=== PATIENT | female | born 1935 | race Caucasian/White ===

== ENCOUNTER 2017-09-14 06:53 | Outpatient (CLI) | payer MEDICARE, OTHER ==
[2017-09-14 07:16] LABS: CREATININE 0.9 mg/dL (0.4-1.0)
[2017-09-14] MEDS ORDERED: GADOBUTROL 15 MMOL/15 ML VIAL IVP ONE (10:21)
--- NOTE | 2017-09-14 17:50 | MRI Report ---
MRI BILATERAL BREASTS WITH AND WITHOUT CONTRAST: 09/14/2017 CLINICAL INDICATION: Multiple skin lesions positive for lobular carcinoma. TECHNIQUE: Using a dedicated breast coil, axial precontrast STIR, T1, dynamic postcontrast axial 3-D images, axial 3-D high resolution images, and postcontrast diffusion weighted images were obtained, 8 mL of Gadavist was administered intravenously. Post- processing with dynamic contrast enhancement analysis and multiplanar reformations were performed with [employer]. FINDINGS: The breasts demonstrate moderate scattered foci of background parenchymal enhancement. RIGHT BREAST: Immediately adjacent to the surgical clips in the right upper central breast, there is a focus of abnormal enhancement, which demonstrates rapid enhancement with plateau kinetics. The margins of this enhancing region appear spiculated on high resolution images. It measures 2.1 x 1.0 x 1.7 cm. The right axillary lymph nodes appear morphologically normal. LEFT BREAST: There is a large region of architectural distortion in the inferior left breast, which involves both the skin and extends back to the chest wall. Only a small amount of abnormal enhancement is appreciated in this region, but the architectural distortion, skin tethering, and extension to the chest wall is very suspicious for malignancy. The region of architectural distortion spans approximately 5 x 4 x 3 cm. Morphologically abnormal left axillary lymph nodes are noted. IMPRESSION: BILATERAL ABNORMALITIES. ENHANCEMENT AROUND THE PREVIOUS RIGHT SURGICAL SITE, SUSPICIOUS FOR MALIGNANCY, AND A LARGE REGION OF ARCHITECTURAL DISTORTION AND SKIN DIMPLING IN THE LEFT LOWER BREAST, WITH ABNORMAL LEFT AXILLARY LYMPH NODES. RECOMMENDATION: If bilateral mastectomy is not planned, biopsy of the right breast abnormality may be helpful in treatment planning. BIRADS category 6: Known malignancy. The patient has been instructed to obtain results from Dr. Watt in 5 business days. COMMENT: Breast MRI is a highly sensitive examination, and has a cancer detection threshold down to approximately 5 mm; however, it only has moderate specificity. Although breast MRI has a high negative predictive value, appropriate clinical and mammographic followup are always necessary. MRI may miss less angiogenic tumors; therefore, it should not be used to avoid a biopsy which is otherwise clinically indicated. Normal appearing lymph nodes may contain microscopic tumor. Due to prone positioning, the described location of findings may differ from other modalities. TD: 09/14/2017 17:49 JUANITA
== END 2017-09-14 06:54 | disposition home or self-care (01) ==
LOC: LAB 06:53
PROVIDERS: ATTEND Surgery
DX: R92.8 Other abnormal and inconclusive findings on diagnostic imaging of breast (principal)
CPT/HCPCS: 36415; 82565; C8908; 77059

== ENCOUNTER 2017-10-17 10:30 | Outpatient (CLI) | payer MEDICARE, OTHER ==
[2017-10-17] MEDS ORDERED: BUFFERED LIDOCAINE 10 ML SYRINGE IU ONE (12:48)
--- NOTE | 2017-10-17 13:35 | Ultrasound Report ---
ULTRASOUND-GUIDED FINE NEEDLE ASPIRATION RIGHT THYROID NODULE: 10/17/2017 CLINICAL INDICATION: Abnormal PET scan. COMPARISON: Report of PET scan of 09/26/2016, report of previous thyroid ultrasound from [facility] from 2014. TECHNIQUE/FINDINGS: Initial imaging of the right lobe of the thyroid demonstrates that the dominant nodule has increased in size, now measuring 3.2 x 2.7 x 2.3 cm. The patient's right neck was prepped and draped in the usual sterile fashion. The skin and soft tissues were anesthetized with lidocaine. Under ultrasound guidance, four 22-gauge fine needle aspirations were performed. Needle washings were submitted to Pathology. The patient tolerated the procedure well. No immediate complications. IMPRESSION: ULTRASOUND-GUIDED FINE NEEDLE ASPIRATION OF THE DOMINANT NODULE IN THE RIGHT LOBE OF THE THYROID. PATHOLOGY REPORT PENDING. TD: 10/17/2017 13:17
[2017-10-17 14:18] VITALS: BP 159/77
== END 2017-10-17 10:31 | disposition home or self-care (01) ==
LOC: DI 10:30
PROVIDERS: ATTEND Surgery
DX: E04.1 Nontoxic single thyroid nodule (principal)
CPT/HCPCS: 10022; 76942; 88173; 88305; 88373

== ENCOUNTER 2018-06-21 07:57 | Outpatient (CLI) | payer MEDICARE, OTHER ==
--- NOTE | 2018-06-21 11:16 | Ultrasound Report ---
Reason: ESSENTIAL HYPERTENSION Procedure Date: 06/21/2018 Accession Number: [id number] / [id number] Procedure: US - Duplex Aorta Complete CPT Code: FULL RESULT: EXAM: AORTIC DOPPLER ULTRASOUND EXAM DATE: 06/21/2018 08:27 AM. CLINICAL HISTORY: Essential hypertension. COMPARISON: None. TECHNIQUE: Real-time sonographic imaging of retroperitoneal vascular structures, including color-flow, Doppler flow and spectral analysis was performed by the vineyardist. Multiple patient portal representative static images were saved for review. FINDINGS: Aorta: The abdominal aorta was adequately visualized. No evidence for abdominal aortic aneurysm. Aorta proximal: Sagittal AP: 1.3 cm. Aorta mid: Transverse: 1.3 x 1.4 cm. Aorta distal: Transverse: 1.3 x 1.3 cm. Caliber within normal limits: Yes. Plaque visualized: No significant plaque Right iliac: Transverse: 1.1 x 1.1 cm. Left iliac: Transverse: 0.9 x 1.1 cm. Doppler: Mid Aorta PSV: Not obtained. Iliac Vessels: The visualized proximal common iliac arteries are normal in caliber. Other: None. IMPRESSION: Normal. No abdominal aortic aneurysm. RADIA
--- NOTE | 2018-06-21 11:16 | Ultrasound Report ---
Reason: ESSENTIAL HYPERTENSION Procedure Date: 06/21/2018 Accession Number: [id number] / [id number] Procedure: US - Carotid Doppler Complete CPT Code: FULL RESULT: EXAM: BILATERAL CAROTID AND VERTEBRAL ARTERY DUPLEX DOPPLER ULTRASOUND: EXAM DATE: 06/21/2018 08:41 AM CLINICAL HISTORY: Essential hypertension. COMPARISON: None. TECHNIQUE: Grayscale imaging, color Doppler, and duplex spectral Doppler were used to evaluate the carotid and vertebral arteries bilaterally. Static images were obtained. FINDINGS: There is mild bilateral intimal thickening and visually approximately 20% narrowing of the proximal right internal carotid artery with no significant plaque identified in the right or left common or left internal carotid arteries. Normal antegrade flow is present in bilateral vertebral arteries. VELOCITIES (cm/sec): Right CCA Mid: PSV 97 cm/sec *CCA Dist: PSV 102 cm/sec ICA Prox: PSV 81 cm/sec, EDV 14 cm/sec ICA Mid: PSV 70 cm/sec, EDV 17 cm/sec *ICA Dist: PSV 82 cm/sec, EDV 20 cm/sec ECA: PSV 94 cm/sec Vert: PSV 48 cm/sec ICA/CCA: 0.84 Left *CCA Mid: PSV 92 cm/sec CCA Dist: PSV 78 cm/sec ICA Prox: PSV 74 cm/sec, EDV 13 cm/sec *ICA Mid: PSV 89 cm/sec, EDV 18 cm/sec ICA Dist: PSV 78 cm/sec, EDV 21 cm/sec ECA: PSV 102 cm/sec Vert: PSV 77 cm/sec ICA/CCA: 0.96 ICA diameter stenosis: Right: <50% by velocity and <70% by NASCET criteria. Left: <50% by velocity and <70% by NASCET criteria. IMPRESSION: 1. Subjectively mild right internal carotid artery atherosclerosis and no significant bilateral common carotid artery or left internal carotid artery plaquing. 2. In the right carotid artery there are no elevated carotid artery velocities to suggest hemodynamically significant stenosis. 3. In the left carotid artery there are no elevated carotid artery velocities to suggest hemodynamically significant stenosis. 4. Normal antegrade flow is present in bilateral vertebral arteries. General Recommendations: Stenosis =50% ICA - Follow-up ultrasound 6-12 months Stenosis <50% ICA - High Risk Patient with plaque - Follow-up ultrasound 1-2 years Normal Study but High Risk Patient - Follow-up ultrasound 3-5 years Management recommendations and diagnostic criteria are based on current IAC endorsed standards in Carotid Artery Stenosis: Grayscale and Doppler Ultrasound Diagnosis. Validated velocity measurements with angiographic measurements and velocity criteria are extrapolated from diameter data as defined by the Society of Radiologists in Ultrasound Consensus Conference Radiology 2003; 229;340-346. RADIA
== END 2018-06-21 07:58 | disposition home or self-care (01) ==
LOC: DI 07:57
PROVIDERS: ATTEND Internal Medicine Cardiovascular Disease
DX: I65.21 Occlusion and stenosis of right carotid artery (principal); I10 Essential (primary) hypertension
CPT/HCPCS: 93880; 93978

== ENCOUNTER 2019-07-29 15:18 | Outpatient (CLI) | payer MEDICARE, OTHER ==
--- NOTE | 2019-07-29 17:09 | CONSULTATION NOTE ---
Palliative Care Consultation - Referral Referring Provider: Dr. Daysi Torres Time of Visit: 7638-8333 Referral setting: [facility] [place] Referral Reason: Anxiety/Locally Advanced Breast CA/Goals of Care - Information Sources Records reviewed: Previous records reviewed History/Review of Systems obtained from: Patient, Other ( with patient; has ALZ) Exam limitations: No limitations - History of Present Illness Brief History of Present Illness: This is an anxious 83-year-old woman, who has locally advanced left breast inf iltrating lobular carcinoma with bilateral axilla and lower chest wall involvement. She is currently on letrozole and Ibrance since 10/2017. She has tolerated fairly well, though is complaining of of significant increase in fatigue, and limiting activity tolerance. Her understanding is they are going to decrease her dose with her next cycle. Patient was originally diagnosed as a result of seeing dermatology, noted some lesions on her chest and on her left breast. She had a punch biopsy performed and showed lobular carcinoma. Patient requesting to see palliative care for advanced care planning, she is very concerned regarding her who is present with her, he has known Alzheimer's, but is still quite functional. He presents with severe short-term memory issues, but has been able to still participate in day-to-day activities, and drive. They were in 1985, this is her second . They have been on [facility] since 2003. They have had quite a colorful life, going back and forth [place], and living out of 42 foot boat for 4 months. They both like to fish at that point in time, are trying to clear out the home. He does not have any children, she has both a girl and a boy. She does not present with high symptom burden, other than fatigue. She denies anxiety on her symptom scales, but presents with symptoms of anxiety, concern regarding the future, and wanting to put things in place. Palliative care working with her regarding goals of care. Medical/Surgical History - Past Medical History Cardiovascular: reports: Hypertension, High cholesterol Respiratory: reports: None Endocrine/Autoimmune: reports: Type 2 diabetes GI: reports: None PROJECT CONTROL MANAGER: reports: Breast cancer : reports: None HEENT: reports: None Psych: reports: Anxiety Musculoskeletal: reports: None Derm: reports: None MRSA Hx?: No - Past Surgical History General: reports: Colonoscopy Ortho: reports: Knee replacement, Other (left ankle replacement) HEENT: reports: Cataracts Other past surgical history: right kidney relocation 1960 Social History - Living Situation Living arrangement: At home Living Situation: With spouse/s.o. Support System: Patient reports she has collected on the belongings from her father, mother and is trying to clear out boxes. She is giving things away which makes her feel better, but is overwhelmed at times with the task. She lives at home with her , who does provide quite a bit of support, her first of [place] [facility] [place] [facility] years ago. She was left with 2 kids, "figured it out". 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 Family History - Family History Family History: Mother: (hydrocehpalus; father of pneumonia), Hypertension, Father: Family History Comment/Other: sister had two daughters with breast cancer; her two children are alive and well Medications/Allergies - Medications Home Medications: Ambulatory Orders Medication Instructions Recorded Confirmed Atorvastatin Calcium 40 mg PO BID 10/12/15 07/31/19 Cholecalciferol (Vitamin D3) 5,000 unit PO DAILY 10/12/15 07/31/19 [Vitamin D3] Losartan [Cozaar] 50 mg PO DAILY 10/12/15 07/31/19 hydroCHLOROthiazide [Hydrodiuril] 25 mg PO DAILY 10/12/15 07/31/19 metFORMIN [Glucophage] 500 mg PO BID 09/18/17 07/31/19 Letrozole 2.5 mg PO DAILY 10/02/17 07/31/19 Palbociclib [Ibrance] 125 mg PO DAILY 07/30/18 07/31/19 Cyanocobalamin (Vitamin B-12) 5,000 units SL DAILY 05/06/19 07/31/19 [Vitamin B-12 (500 mcg sublingual)] Manderson-3/Dha/Epa/Fish Oil [Manderson 3 1 cap PO DAILY 07/29/19 07/31/19 500 Softgel] Ca/D3/Mag Ox/Zinc/Glass Forming Crew Member/Paul/Bor 600 mg PO DAILY 07/31/19 07/31/19 [Calcium 142-U3-Gifzwesx Chw Tb] - Allergies Allergies/Adverse Reactions: Allergies Allergy/AdvReac Type Severity Reaction Status Date / Time No Known Drug Allergies Allergy Verified 07/29/19 10:43 Review of Systems - Constitutional Constitutional: reports: Fatigue (worsening; limiting activity), Weight stable. denies: Fever - Eyes Eyes: reports: Vision loss, Corrective lenses, Other (dry eyes; intermittent watering) - Ears, Nose & Throat Ears, Nose & Throat: reports: Hearing loss, Postnasal drainage - Cardiovascular Cardiovascular: denies: Chest pain - Respiratory Respiratory: reports: Cough (attributes to post nasal drip), SOB with exertion. denies: SOB at rest - Gastrointestinal Gastrointestinal: reports: Constipation (intermittent), Nausea, Good appetite - Musculoskeletal Musculoskeletal: reports: Muscle weakness, Other (difficulty walking at times; cramps in toes) - Integumentary Integumentary: reports: Dryness - Neurological Neurological: reports: General weakness - Psychiatric Psychiatric: denies: Depression, Anxiety - Endocrine Endocrine: reports: Diabetes type 2 (blood sugars on higher side; meeting with DM educator for adjustment) - Hematologic/Lymphatic Hematologic/Lymphatic: reports: Anemia (9.8). denies: Recurrent infections - All Other Systems All Other Systems: reports: Reviewed and negative Physical Exam - Vital Signs Pulse Rate: 89 Respiratory Rate: 18 Blood Pressure: 134/52 - Physical Exam General Appearance: positive: Alert, Anxious Eyes Bilateral: positive: Normal inspection ENT: positive: No signs of dehydration Neck: positive: No JVD, Trachea midline Cardiovascular: positive: Regular rate & rhythm Respiratory: positive: No respiratory distress, Breath sounds nml Abdomen: positive: Non-tender, Soft Skin: positive: Pallor, Dryness, Bruising Extremities: positive: No pedal edema Neurologic/Psychiatric: positive: Oriented x3, Mood/affect nml, Weakness Palliative Care - POLST Patient has POLST: No Sleep: Sleeps well Constipation: No Performance Status: Patient is limited by her fatigue, needs frequent rest periods also has some difficulty with walking, her is helping her with household things and does drive. She is managing her own ADLs - Palliative Care Discussion: Patient presents with high anxiety, is trying to put everything in order. She is actually several years older than her , with thinking he was going to build to take care of her. He is quite pleasant, but has significant short-term memory issues, and needs redirection and cueing. But is quite pleasant. He does not have any children, but they have set up her son is Neyda PÉREZ, and his is follow-up for the both of them. She has all of her father and mother's belongings, as well as I believe her sisters and is trying to sort through this and re-distribute. She reports she has no other significant things on her bucket list, she and her had traveled quite a bit through their marriage, but this is no longer possible. She worries about being depressed, though does not present with any depressive symptoms. She is also worried about being ready for end-of-life, does have a D POA, healthcare directive, did introduce the POLST. Did recommend this would most likely make sense in the context of her current situation, she will take the form and discuss with her son. Her other focus was wanting to get her plans taking care of, did provide information on people's memorial, and local homes. She would like to actually know what kind of prognosis she has, she has not asked her oncologist, or recall what she has been told. She does understand it is not curable, and will be on lifetime cancer treatment. Did discuss more than willing to reach out for that information to help with advanced care planning. Results - Lab Results Lab results reviewed: Yes Lab and Imaging Results: WBC 1.9 Impression and Recommendations - Palliative Care Impression: This is an 83-year-old woman with locally advanced metastatic left breast infiltrating lobular carcinoma, involving left breast, left axilla, and left lower chest wall and right axilla. She has been on letrozole and Ibrance since October 2017, and his thought to have a complete remission at this point in time. She is experiencing fatigue, but otherwise presents with low symptom burden. Patient quite anxious regarding advanced care planning, initiated conversation and anticipatory guidance with palliative care today. Recommendations/Counseling Done: 1. Diabetes type 2. Patient does have elevated blood sugars, currently only on metformin 500 mg twice daily, she would like better control. She has already had a referral to the diabetes program, patient with multiple questions, addressed as able but will defer to CDE. She reports she has been through the diabetic program, does feel like she follows a fairly adherent diet, but does understand she most likely needs her medications adjusted or introduction of insulin. 2. Fatigue. This most likely is related to her anemia, though does present with some numbness and lower extremity peripheral neuropathy. She does pace her activities, she is challenged at times regarding the care and oversight with her Alzheimer's . Counseling provided regarding pacing activities, role of fluid status and hydration, as well as is adequate calories. 3. Advanced care planning. Patient does have D POA, which is her son Marco Antonio Tucker [phone] as well as a healthcare directive. We did discuss in the context of future decision making, she very much wants her plans in place. Resources given and reviewed, reviewed goals of care, she wants to get her "junk" sorted through and distributed. Introduced the POLST, she would also like more information on her prognosis to help with future planning. Will reach out to oncology. She also had many questions regarding the future for her with Alzheimer's, we did [place] natural progression of [place] dementia resources. Time Spent: 75 minutes with greater than 50% of this done in counseling regarding goals of care, management of fatigue, and anticipatory guidance
== END 2019-07-29 15:19 | disposition home or self-care (01) ==
LOC: PC 15:18
PROVIDERS: ATTEND Nurse Practitioner Adult Health
DX: Z51.5 Encounter for palliative care (principal); E11.65 Type 2 diabetes mellitus with hyperglycemia; R53.83 Other fatigue; F41.9 Anxiety disorder, unspecified; D63.0 Anemia in neoplastic disease; C50.912 Malignant neoplasm of unspecified site of left female breast; C79.89 Secondary malignant neoplasm of other specified sites; Z79.899 Other long term (current) drug therapy; Z79.84 Long term (current) use of oral hypoglycemic drugs
CPT/HCPCS: 99205

== ENCOUNTER 2019-08-16 14:30 | Emergency (ER) | payer MEDICARE, OTHER ==
[2019-08-16 14:38] VITALS: BP 142/67
--- NOTE | 2019-08-16 14:40 | ED Physician Documentation ---
PD HPI FEMALE - Stated complaint Stated Complaint: FEMALE - Chief complaint Chief Complaint: Abd Pain - History obtained from History obtained from: Patient - History of Present Illness Timing - onset: Yesterday Timing - duration: Days (05/22) Timing - details: Gradual onset (She noted onset of feeling of some vaginal and pelvic intermittent sharp pains and a burning feeling. She thought she may have a yeast infection so applied some Monistat cream she got [id number] and stated it burned quite a bit. This is unusual for her from experiencing prior yeast infections. She today then noticed a purulent vaginal discharge. She does have a history of some vaginal tissue irritation related to her medications of estrogen and chemotherapy for her breast cancer. She had been told to watch for signs of infection in general. She is concerned about a bacterial infection vaginally as it does not feel or seem like yeast. She denies any fever chills nausea or vomiting.) Associated symptoms: Pelvic pain, Vaginal pain, Vaginal discharge. No: Fever, Back pain, Vaginal bleeding, Genital sore/lesion, Dysuria Contributing factors: No: Sexually active (last intercourse about 2 years ago) Similar symptoms before: Has not had sx before Review of Systems Constitutional: denies: Fever, Chills GI: denies: Abdominal Pain, Nausea, Vomiting : reports: Discharge. 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 : None HEENT: None Psych: Anxiety Musculoskeletal: None Derm: None Other Past Medical History: breast cancer - Past Surgical History General: Colonoscopy Ortho: Knee replacement, Other (left ankle replacement) HEENT: Cataracts - Present Medications Home Medications: Ambulatory Orders Medication Instructions Recorded Confirmed Atorvastatin Calcium 40 mg PO BID 10/12/15 08/16/19 Cholecalciferol (Vitamin D3) 5,000 unit PO DAILY 10/12/15 08/16/19 [Vitamin D3] Losartan [Cozaar] 50 mg PO DAILY 10/12/15 08/16/19 hydroCHLOROthiazide [Hydrodiuril] 25 mg PO DAILY 10/12/15 08/16/19 metFORMIN [Glucophage] 500 mg PO BID 09/18/17 08/16/19 Letrozole 2.5 mg PO DAILY 10/02/17 08/16/19 Palbociclib [Ibrance] 125 mg PO DAILY 07/30/18 08/16/19 Cyanocobalamin (Vitamin B-12) 5,000 units SL DAILY 05/06/19 08/16/19 [Vitamin B-12 (500 mcg sublingual)] [place]-3/Dha/Epa/Fish Oil [[place] 3 1 cap PO DAILY 07/29/19 08/16/19 500 Softgel] Ca/D3/Mag Ox/Zinc/Academic Program Specialist/Paul/Bor 600 mg PO DAILY 07/31/19 08/16/19 [Calcium 714-Q7-Jwsengct Chw Tb] Doxycycline Monohydrate 100 mg PO BID #14 tablet 08/16/19 metroNIDAZOLE VAGINAL GEL 1 applic VG BID 7 Days #1 tube 08/16/19 [Metrogel] - Allergies Allergies/Adverse Reactions: Allergies Allergy/AdvReac Type Severity Reaction Status Date / Time No Known Drug Allergies Allergy Verified 08/16/19 14:33 - POLST Patient has POLST: No PD ED PE NORMAL - Vitals Vital signs reviewed: Yes - General General: Alert and oriented X 3, No acute distress, Well developed/nourished - Abdomen Abdomen: Normal bowel sounds, Soft, Non tender, Non distended - 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 There is no noted redness nor irritation in the vaginal labial folds. Intravaginally is a green to yellow thready discharge. Generally within the vaginal vault is patchy areas of redness and irritation more likely consistent with vaginitis from dryness or hormonal. However there is diffuse mild discolored discharge. There is no endocervical discharge noted. There are no areas of focal swelling nor appearance of abscess or focal drainage. Cultures are obtained for both BV and STDs and then just a blue top culture for regular infection.) - Rectal Rectal: Deferred - Back Back: No CVA TTP - Derm Derm: Normal color, Warm and dry Results - Vitals Vitals: Vital Signs - 24 hr 08/16/19 14:33 Temperature 36.7 C Heart Rate 93 Respiratory 14 Rate Blood Pressure 142/67 H O2 Saturation 97 Oxygen O2 Source Room air - Labs Labs: Microbiology 08/16/19 15:20 Wound Culture - Preliminary Other - Vaginal Laboratory Tests 0308/16/19 08/16/19 15:15 15:45 15:45 WBC 3.1 L RBC 2.75 L Hgb 10.7 L Hct 30.6 L MCV 111.3 H MCH 38.9 H MCHC 35.0 RDW 13.0 Plt Count 227 MPV 9.5 Neut # (Auto) Not Reportable Lymph # (Auto) Not Reportable Frio # (Auto) Not Reportable Eos # (Auto) Not Reportable Baso # (Auto) Not Reportable Absolute Nucleated RBC Not Reportable Total Counted 100 Band Neuts % (Manual) 2 Reactive Lymphs % (Man) 2 Abnorm Lymph % (Manual) 0 Nucleated RBC % Not Reportable Neutrophils # (Manual) 1.8 Lymphocytes # (Manual) 1.0 L Monocytes # (Manual) 0.3 Eosinophils # (Manual) 0.0 Basophils # (Manual) 0.0 Differential Comment MANUAL DIFFERENTIAL Platelet Estimate NORMAL (130-450,000) Platelet Morphology NORMAL APPEARANCE RBC Morph Micro Appear NORMAL APPEARANCE Sodium 137 Potassium 3.8 Chloride 101 Carbon Dioxide 27 Anion Gap 9.0 BUN 36 H Creatinine 1.5 H Estimated GFR (MDRD) 33 L Glucose 126 H Calcium 9.4 Total Bilirubin 1.1 H AST 22 ALT 17 Alkaline Phosphatase 62 Total Protein 7.6 Albumin 4.7 Globulin 2.9 Albumin/Globulin Ratio 1.6 Lipase 69 H Urine Color YELLOW Urine Clarity HAZY Urine pH 5.5 Ur Specific [place] 1.015 Urine Protein NEGATIVE Urine Glucose (UA) NEGATIVE Urine Ketones TRACE Urine Occult Blood NEGATIVE Urine Nitrite NEGATIVE Urine Bilirubin NEGATIVE Urine Urobilinogen 0.2 (NORMAL) Ur Leukocyte Esterase TRACE H Urine RBC 0-5 Urine WBC 6-10 H Ur Squamous Epith Cells NONE SEEN Urine Bacteria Few Urine Mucus Few Strands Ur Microscopic Review INDICATED Urine Culture Comments INDICATED PD MEDICAL DECISION MAKING - ED course Complexity details: considered differential (Consideration would be for bacterial vaginosis or even just regular wound infection so would treat for potential of vaginal species and reasonable to cover for staph or such as well. I would treat her with doxycycline and orally and metronidazole vaginally. We will get the test results over the next day or 2. Medications can be modified based on that), d/w patient Departure - Departure Disposition: 01 Home, Self Care Clinical Impression: Bacterial vaginitis Condition: Stable Record reviewed to determine appropriate education?: Yes Instructions: ED Vaginosis Bacterial Follow-Up: Lawrence Delgado MD [Primary Care Provider] - Mana Torres MD [Provider Admit Priv/Credential] - Prescriptions: Doxycycline Monohydrate 100 mg PO BID #14 tablet metroNIDAZOLE VAGINAL GEL [Metrogel] 1 applic VG BID 7 Days #1 tube Comments: Use the doxycycline orally and the metronidazole vaginally as directed. We will get the culture results back in a day or 2 and see if we need to change the antibiotics based on that. Follow-up with your primary care. Discharge Date/Time: 08/16/19 16:06
[2019-08-16] MEDS ORDERED: metroNIDAZOLE 250 MG TABLET PO STA (15:42)
[2019-08-16] MEDS ORDERED: DOXYCYCLINE 100 MG TABLET PO STA (15:42)
[2019-08-16 15:52] LABS: BILIRUBIN,URINE NEGATIVE (NEGATIVE); GLUCOSE, URINE (UA) NEGATIVE (NEGATIVE); KETONES,URINE (UA) TRACE mg/dL (NEGATIVE); LEUKOCYTE ESTERASE, URINE TRACE (NEGATIVE); NITRITE,URINE NEGATIVE (NEGATIVE); OCCULT BLOOD,URINE NEGATIVE (NEGATIVE); PH,URINE 5.5 PH (5.0-7.5); PROTEIN,URINE NEGATIVE (NEGATIVE); UROBILINOGEN,URINE 0.2 (NORMAL) E.U./dL (NORMAL)
[2019-08-16 15:54] LABS: BASOPHILS % (AUTO) 0.6 %; EOSINOPHILS % (AUTO) 1.9 %; HGB - HEMOGLOBIN 10.7 g/dL (12.0-16.0); LYMPHOCYTES % (AUTO) 30.3 %; MEAN CORPUSCULAR HEMOGLOBIN 38.9 pg (27.0-31.0); MEAN CORPUSCULAR VOLUME 111.3 fL (81.0-99.0); MEAN PLATELET VOLUME 9.5 fL (7.9-10.8); MONOCYTES % (AUTO) 6.5 %; NEUTROPHILS % (AUTO) 60.4 %; PLT - PLATELET COUNT 227 10^3/uL (130-450); RED BLOOD COUNT 2.75 10^6/uL (4.20-5.40); WHITE BLOOD COUNT 3.1 x10^3/uL (4.8-10.8)
[2019-08-16 15:58] LABS: ABNORMAL LYMPHS % (MANUAL) 0 %
[2019-08-16 15:59] LABS: CLARITY,URINE HAZY (CLEAR)
[2019-08-16 16:03] LABS: ALBUMIN 4.7 g/dL (3.2-5.5); ALBUMIN/GLOBULIN RATIO 1.6 (1.0-2.2); BILIRUBIN,TOTAL 1.1 mg/dL (0.2-1.0); CALCIUM 9.4 mg/dL (8.5-10.3); CREATININE 1.5 mg/dL (0.4-1.0); TOTAL PROTEIN 7.6 g/dL (6.7-8.2)
[2019-08-16 16:04] LABS: BACTERIA,URINE Few /HPF (None Seen); MUCUS,URINE Few Strands; RBC,URINE 0-5 /HPF (0-5); SQUAMOUS EPITHELIAL CELL,UR NONE SEEN (<= Few)
[2019-08-16 16:34] LABS: BAND NEUTROPHILS % (MANUAL) 2 %; BASOPHILS % (MANUAL) 1 %; DIFFERENTIAL COMMENT MANUAL DIFFERENTIAL; LYMPHOCYTES % (MANUAL) 29 %; MONOCYTES # (MANUAL) 0.3 10^3/uL (0.0-1.0); PLATELET ESTIMATE, MANUAL NORMAL (130-450,000) (NORMAL); PLATELET MORPHOLOGY NORMAL APPEARANCE (NORMAL); RBC MORPHOLOGY (MULTIPLE) NORMAL APPEARANCE (NORMAL)
[2019-08-16 19:33] LABS: CANDIDA GROUP DNA UNRESOLVED (NEGATIVE); CANDIDA KRUSEI DNA UNRESOLVED (NEGATIVE); TRICHOMONAS VAGINALIS DNA UNRESOLVED (NEGATIVE)
[2019-08-16 20:09] LABS: TRICHOMONAS VAGINALIS DNA NEGATIVE (NEGATIVE)
== END 2019-08-16 16:06 | disposition home or self-care (01) ==
LOC: ED 14:30
DX: N76.0 Acute vaginitis (principal); I10 Essential (primary) hypertension; E78.00 Pure hypercholesterolemia, unspecified; E11.9 Type 2 diabetes mellitus without complications; C50.919 Malignant neoplasm of unspecified site of unspecified female breast; F41.9 Anxiety disorder, unspecified; Z79.84 Long term (current) use of oral hypoglycemic drugs
CPT/HCPCS: 36415; 80053; 81001; 83690; 85025; 87070; 87086; 87205; 87481; 87491; 87591; 87661; 87801; 99283; 99284; A9270; 81003

== ENCOUNTER 2019-08-21 11:16 | Emergency (ER) | payer MEDICARE, OTHER ==
[2019-08-21 12:12] LABS: BASOPHILS % (AUTO) 0.5 %; EOSINOPHILS % (AUTO) 1.6 %; HGB - HEMOGLOBIN 10.1 g/dL (12.0-16.0); LYMPHOCYTES # (AUTO) 0.7 10^3/uL (1.5-3.5); MEAN CORPUSCULAR HEMOGLOBIN 38.4 pg (27.0-31.0); MEAN CORPUSCULAR HGB CONC 34.7 g/dL (32.0-36.0); MEAN CORPUSCULAR VOLUME 110.6 fL (81.0-99.0); MEAN PLATELET VOLUME 9.7 fL (7.9-10.8); MONOCYTES # (AUTO) 0.1 10^3/uL (0.0-1.0); MONOCYTES % (AUTO) 3.3 %; NEUTROPHILS # (AUTO) 1.1 10^3/uL (1.5-6.6); NEUTROPHILS % (AUTO) 57.6 %; PLT - PLATELET COUNT 132 10^3/uL (130-450); RED BLOOD COUNT 2.63 10^6/uL (4.20-5.40); RED CELL DISTRIBUTION WIDTH 13.1 % (12.0-15.0)
[2019-08-21 12:16] LABS: WHITE BLOOD COUNT 1.8 x10^3/uL (4.8-10.8)
[2019-08-21 12:21] LABS: ALBUMIN 4.1 g/dL (3.2-5.5); ALBUMIN/GLOBULIN RATIO 1.4 (1.0-2.2); BILIRUBIN,TOTAL 0.9 mg/dL (0.2-1.0); CALCIUM 8.7 mg/dL (8.5-10.3); CREATININE 1.5 mg/dL (0.4-1.0); TOTAL PROTEIN 7.1 g/dL (6.7-8.2)
[2019-08-21 12:35] LABS: PLATELET ESTIMATE, MANUAL NORMAL (130-450,000) (NORMAL); PLATELET MORPHOLOGY NORMAL APPEARANCE (NORMAL)
[2019-08-21 12:36] LABS: DIFFERENTIAL COMMENT MANUAL=AUTO DIFF
[2019-08-21 12:39] LABS: BILIRUBIN,URINE NEGATIVE (NEGATIVE); GLUCOSE, URINE (UA) >=1000 mg/dL (NEGATIVE); KETONES,URINE (UA) NEGATIVE (NEGATIVE); LEUKOCYTE ESTERASE, URINE NEGATIVE (NEGATIVE); NITRITE,URINE NEGATIVE (NEGATIVE); OCCULT BLOOD,URINE NEGATIVE (NEGATIVE); PH,URINE 5.5 PH (5.0-7.5); PROTEIN,URINE NEGATIVE (NEGATIVE); UROBILINOGEN,URINE 0.2 (NORMAL) E.U./dL (NORMAL)
[2019-08-21 12:42] LABS: CLARITY,URINE CLEAR (CLEAR)
--- NOTE | 2019-08-21 13:04 | ED Physician Documentation ---
History of Present Illness - Stated complaint Stated Complaint: MED REACTION - Chief complaint Chief Complaint: General - History obtained from History obtained from: Patient (Patient is a 83-year-old female who is here today with complaints of stool that was dark in color. She was here approximately 5 days ago and treated for a vaginitis with doxycycline and metronidazole. Patient does have breast cancer and is currently receiving treat ment for this. She is concerned that her dark stools are being caused by her doxycycline or metronidazole. She states she is had some intermittent abdominal cramping that is fairly mild over the past week. Denies any nausea, vomiting, or diarrhea. She does note that her stool has felt a little bit more loose since she started taking her doxycycline. She denies any rectal bleeding. She does have a history of external hemorrhoids that do not cause her problems. Patient denies any recent fevers, chills, fatigue, congestion, or cough. Has no weakness or near syncopal episodes.) Review of Systems Constitutional: denies: Fever, Chills, Myalgias Eyes: denies: Loss of vision, Decreased vision, Photophobia Nose: denies: Rhinorrhea / runny nose Throat: denies: Dental pain / toothache, Sore throat, Swollen tonsils Cardiac: denies: Chest pain / pressure Respiratory: denies: Dyspnea GI: reports: Abdominal Pain, Bloody / black stool. 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 : None HEENT: None Psych: Anxiety Musculoskeletal: None Derm: None - Past Surgical History General: Colonoscopy Ortho: Knee replacement, Other HEENT: Cataracts - Present Medications Home Medications: Ambulatory Orders Medication Instructions Recorded Confirmed Atorvastatin Calcium 40 mg PO BID 10/12/15 08/16/19 Cholecalciferol (Vitamin D3) 5,000 unit PO DAILY 10/12/15 08/16/19 [Vitamin D3] Losartan [Cozaar] 50 mg PO DAILY 10/12/15 08/16/19 hydroCHLOROthiazide [Hydrodiuril] 25 mg PO DAILY 10/12/15 08/16/19 metFORMIN [Glucophage] 500 mg PO BID 09/18/17 08/16/19 Letrozole 2.5 mg PO DAILY 10/02/17 08/16/19 Palbociclib [Ibrance] 125 mg PO DAILY 07/30/18 08/16/19 Cyanocobalamin (Vitamin B-12) 5,000 units SL DAILY 05/06/19 08/16/19 [Vitamin B-12 (500 mcg sublingual)] [place]-3/Dha/Epa/Fish Oil [[place] 3 1 cap PO DAILY 07/29/19 08/16/19 500 Softgel] Ca/D3/Mag Ox/Zinc/Marking Room Supervisor/Paul/Bor 600 mg PO DAILY 07/31/19 08/16/19 [Calcium 797-B5-Acezdgjc Chw Tb] Doxycycline Monohydrate 100 mg PO BID #14 tablet 08/16/19 metroNIDAZOLE VAGINAL GEL 1 applic VG BID 7 Days #1 tube 08/16/19 [Metrogel] - Allergies Allergies/Adverse Reactions: Allergies Allergy/AdvReac Type Severity Reaction Status Date / Time No Known Drug Allergies Allergy Verified 08/21/19 11:24 - Social History Does the pt smoke?: No Smoking Status: Never smoker - POLST Patient has POLST: No PD ED PE NORMAL - Vitals Vital signs reviewed: Yes - General General: Alert and oriented X 3, No acute distress, Well developed/nourished - HEENT HEENT: No: Atraumatic - Neck Neck: Supple, no meningeal sign - Cardiac Cardiac: RRR - Respiratory Respiratory: No respiratory distress - Abdomen Abdomen: Normal bowel sounds, Non tender, Non distended - Rectal Rectal: Other (Rectal exam performed with a female RN present. There are external nonthrombosed, nontender, nonbleeding hemorrhoids. Rectal tone is unremarkable. No gross blood was noted. Sample obtained for Hemoccult testing.) - Back Back: No CVA TTP - Derm Derm: Normal color - Extremities Extremities: No deformity, Normal ROM s pain - Neuro Neuro: Alert and oriented X 3, No motor deficit, No sensory deficit, Normal speech Eye Opening: Spontaneous Results - Vitals Vitals: Vital Signs - 24 hr 08/21/19 08/21/19 11:17 13:14 Temperature 36.3 C L 37.0 C Heart Rate 102 H 83 Respiratory 14 20 Rate Blood Pressure 147/77 H 131/99 H O2 Saturation 96 99 Oxygen O2 Source Room air - Labs Labs: Microbiology 08/21/19 12:30 Occult Blood - Final Stool Laboratory Tests 08/21/19 08/21/19 08/21/19 12:02 12:02 12:24 WBC 1.8 L* RBC 2.63 L Hgb 10.1 L Hct 29.1 L MCV 110.6 H MCH 38.4 H MCHC 34.7 RDW 13.1 Plt Count 132 MPV 9.7 Neut # (Auto) 1.1 L Lymph # (Auto) 0.7 L [place] # (Auto) 0.1 Eos # (Auto) 0.0 Baso # (Auto) 0.0 Absolute Nucleated RBC 0.00 Band Neuts % (Manual) Not Reportable Abnorm Lymph % (Manual) Not Reportable Nucleated RBC % 0.0 Neutrophils # (Manual) Not Reportable Lymphocytes # (Manual) Not Reportable Monocytes # (Manual) Not Reportable Eosinophils # (Manual) Not Reportable Basophils # (Manual) Not Reportable Differential Comment MANUAL=AUTO DIFF WBC Morphology 1+ REACTIVE LYMPHS Platelet Estimate NORMAL (130-450,000) Platelet Morphology NORMAL APPEARANCE RBC Morph Micro Appear 1+ OVALOCYTES Sodium 136 Potassium 3.8 Chloride 103 Carbon Dioxide 25 Anion Gap 8.0 BUN 35 H Creatinine 1.5 H Estimated GFR (MDRD) 33 L Glucose 306 H Calcium 8.7 Total Bilirubin 0.9 AST 22 ALT 18 Alkaline Phosphatase 65 Total Protein 7.1 Albumin 4.1 Globulin 3.0 Albumin/Globulin Ratio 1.4 Urine Color YELLOW Urine Clarity CLEAR Urine pH 5.5 Ur Specific [place] 1.020 Urine Protein NEGATIVE Urine Glucose (UA) >=1000 H Urine Ketones NEGATIVE Urine Occult Blood NEGATIVE Urine Nitrite NEGATIVE Urine Bilirubin NEGATIVE Urine Urobilinogen 0.2 (NORMAL) Ur Leukocyte Esterase NEGATIVE Ur Microscopic Review NOT INDICATED Urine Culture Comments NOT INDICATED PD MEDICAL DECISION MAKING - ED course Complexity details: reviewed old records, reviewed results (Reviewed and discussed patient's test results. Her CBC is consistent with her, current chemotherapy regimen. Her creatinine is elevated however this is stable and compared to her prior test. Remaining tests are Unremarkable for any significant changes.), considered differential, d/w patient (Test results were discussed with patient. She is currently nontoxic-appearing and asymptomatic. She agrees with continue her current antibiotic regimen. She may stop this if she develops any bright red blood, watery stool, and return here if she develops any continued black tarry stool for a recheck. Return to the emergency room anytime for any emergent changes.) Departure - Departure Disposition: 01 Home, Self Care Clinical Impression: Change in stool Condition: Stable Comments: Continue current medications including your antibiotics. Follow-up with your oncologist as planned. Monitor your stool for any further changes. Please return emergency room if you develop any worsening abdominal pain, bright red blood noted in your stool. Continue dark stools. Or any other emergent changes.
[2019-08-21 13:15] VITALS: BP 131/99
== END 2019-08-21 14:14 | disposition home or self-care (01) ==
LOC: ED 11:16
DX: R19.5 Other fecal abnormalities (principal); I10 Essential (primary) hypertension; E11.9 Type 2 diabetes mellitus without complications; Z79.84 Long term (current) use of oral hypoglycemic drugs; C50.919 Malignant neoplasm of unspecified site of unspecified female breast; Z79.899 Other long term (current) drug therapy
CPT/HCPCS: 36415; 80053; 81001; 81003; 82272; 85025; 87086; 99283; 99284

== ENCOUNTER 2019-12-02 09:36 | Outpatient (CLI) | payer MEDICARE, OTHER ==
--- NOTE | 2019-12-02 15:34 | DEXA Report ---
Reason: POST MENOPAUSAL Procedure Date: 12/02/2019 Accession Number: [id number] / [id number] Procedure: DEX - Dexa Spine and/or Hip CPT Code: Final Report FULL RESULT: PROCEDURE: Dexa Spine and/or Hip INDICATIONS: POST MENOPAUSAL TECHNIQUE: Dual energy x-ray absorptiometry (DXA) was performed on a [employer] System. Regions measured are the AP Spine, femoral neck, and if needed forearm. COMPARISON: None. FINDINGS: Lumbar Spine: Bone Mineral Density 1.878 g/cm/cm,T score 5.8, normal Left Hip: Bone Mineral Density 1.0 90 g/cm/cm,T score 0.7, normal Left Femoral Neck: Bone Mineral Density 1.006 g/cm/cm, T score -0.2, normal (T score greater or equal to -1.0: NORMAL) (T score from -1.1 to -2.4: OSTEOPENIA) (T score less than or equal to -2.5 to: OSTEOPOROSIS) Impression: No osteopenia or osteoporosis. Patients with diagnosis of osteoporosis or osteopenia should have regular bone mineral density assessment. For those eligible for Medicare, routine testing is allowed once every 2 years. Testing frequency can be increased for patients who have rapidly progressing disease or for those who are receiving medical therapy to restore bone mass. Reviewed by: Margaret Little MD on 12/02/2019 3:33 PM PDT Approved by: Margaret Little MD on 12/02/2019 3:33 PM PDT Station ID: [id number]
== END 2019-12-02 09:37 | disposition home or self-care (01) ==
LOC: DI 09:36
PROVIDERS: ATTEND Internal Medicine Hematology & Oncology
DX: Z78.0 Asymptomatic menopausal state (principal)
CPT/HCPCS: 77080

== ENCOUNTER 2020-04-26 08:40 | Outpatient (CLI) | payer MEDICARE, OTHER ==
[2020-04-26] MEDS ORDERED: IOVERSOL 320 100 ML VIAL IVP ONE ×2 (10:14→14:37)
--- NOTE | 2020-04-26 16:00 | Nuclear Medicine Report ---
PROCEDURE: Bone Whole Body INDICATIONS: BREAST CA RADIOPHARMACEUTICAL: 27 mCi Tc-99m MDP IV. TECHNIQUE: Delayed whole-body scintigrams were obtained approximately 3-4 hours after intravenous injection of r adiotracer. Anterior and posterior views were acquired from vertex to feet. Additional left and rig ht oblique views of the head and neck were obtained. COMPARISON: None available. FINDINGS: Degenerative uptake of radiotracer at the bilateral glenohumeral and acromial clavicular j oints, as well as the bilateral ankle and mid feet. Fallopian a defect from right knee arthroplasty i s present. No increased radiotracer uptake within the skeleton to indicate metastatic disease. IMPRESSION: Multifocal osteoarthritis. No evidence of metastatic disease. Reviewed by: Fernando Onofre MD on 04/26/2020 3:59 PM [facility] Approved by: Fernando Onofre MD on 04/26/2020 3:59 PM [facility] Station ID: [id number]
== END 2020-04-26 08:41 | disposition home or self-care (01) ==
LOC: DI 08:40
PROVIDERS: ATTEND Internal Medicine Hematology & Oncology
DX: M19.012 Primary osteoarthritis, left shoulder (principal); M19.011 Primary osteoarthritis, right shoulder; M19.072 Primary osteoarthritis, left ankle and foot; M19.071 Primary osteoarthritis, right ankle and foot
CPT/HCPCS: 78306

== ENCOUNTER 2020-10-12 08:45 | Outpatient (CLI) | payer MEDICARE, OTHER ==
--- NOTE | 2020-10-12 14:55 | Nuclear Medicine Report ---
PROCEDURE: Bone Whole Body INDICATIONS: BREAST AND SKIN CA RADIOPHARMACEUTICAL: 23.1 mCi Tc-99m MDP IV. TECHNIQUE: Delayed whole-body scintigrams were obtained approximately 3-4 hours after intravenous injection of r adiotracer. Anterior and posterior views were acquired from vertex to feet. Additional left and rig ht oblique views of the calvarium were obtained. COMPARISON: Bone scan 04/26/2020. FINDINGS: No areas of intense radiotracer uptake identified in the osseous skeleton but be suspiciou s for osseous metastatic disease. Photopenia noted in the right knee compatible with presence of arth roplasty prosthesis. Subtle increased radiotracer uptake identified in the shoulders bilaterally, the cervical spine, the wrists bilaterally, the ankles bilaterally and the right midfoot compatible with osteoarthritis. IMPRESSION: No evidence of osseous metastatic disease. Reviewed by: Francy Mcbride MD, PhD on 10/12/2020 2:53 PM PDT Approved by: Francy Mcbride MD, PhD on 10/12/2020 2:53 PM PDT Station ID: [id number]
== END 2020-10-12 08:46 | disposition home or self-care (01) ==
LOC: DI 08:45
PROVIDERS: ATTEND Internal Medicine Hematology & Oncology
DX: C79.2 Secondary malignant neoplasm of skin (principal); C79.81 Secondary malignant neoplasm of breast; C77.3 Secondary and unspecified malignant neoplasm of axilla and upper limb lymph nodes
CPT/HCPCS: 78306

== ENCOUNTER 2020-10-12 09:46 | Outpatient (CLI) | payer MEDICARE, OTHER ==
[~2020-10-12 09:46] MED LIST: IOPAMIDOL-300 50 ML VIAL ONE; IOVERSOL 320 100 ML VIAL IVP ONE
[2020-10-12] MEDS ORDERED: IOPAMIDOL-300 50 ML VIAL PO ONE (12:11)
--- NOTE | 2020-10-12 15:25 | CT Report ---
PROCEDURE: CHEST WO INDICATIONS: BREAST AND SKIN CA TECHNIQUE: Noncontrast 5 mm thick sections acquired from the pulmonary apices to the posterior costophrenic angl es. 7 mm thick coronal and sagittal MIP reformats were then acquired. For radiation dose reduction, the following was used: automated exposure control, adjustment of mA and/or kV according to patient size. COMPARISON: CT chest 04/26/2020, CT abdomen pelvis 10/12/2020. FINDINGS: Image quality: Excellent. Lungs and pleura: There is pleural parenchymal scarring redemonstrated in the lung apices. There is minimal dependent atelectasis bilaterally. No new suspicious nodules or mass lesions. No acute consol idation. No pleural effusions or pneumothorax. Central and peripheral airways are patent and normal in caliber. Mediastinum: Heart size is normal. No pericardial effusion. There is coronary arterial vascular ca lcification. No mediastinal adenopathy by size criteria. Thoracic aorta normal is normal in caliber and contour. Esophagus is normal in caliber. No hiatal hernia. Bones and chest wall: No suspicious bony lesions. No vertebral body compression fractures. No axil anju or supraclavicular adenopathy by size criteria. A hypoattenuating right thyroid nodule redemons trated, measuring approximately 2.9 x 2.7 cm which appears similar in size compared to the prior stud ies given since is in technique. A smaller nodules also inserted in the inferior pole of the left thy roid lobe measuring up to 0.8 cm. No discrete chest wall mass identified. Abdomen: Visualized upper abdomen demonstrates a small amount of perihepatic fluid. Multiple calcifi ed gallstones are noted within the gallbladder. A small oval hypoattenuating lesion within the visual ized left kidney measuring up to 1.7 cm is incompletely characterized and may represent a hyperdense cyst or renal mass. IMPRESSION: 1. No definite evidence of new recurrent or metastatic disease in the thorax. 2. Bilateral thyroid nodules including a large dominant right nodule redemonstrated. This appears sim ilar to the prior study given differences in technique and was reportedly biopsied recently. Recommen d correlation with clinical history and consider a follow-up ultrasound if indicated. 3. Slightly hyperattenuating left renal lesion may represent a hyperdense hemorrhagic cyst or a renal mass. Recommend initial further evaluation with a renal ultrasound. 4. Cholelithiasis. CLINICAL RECOMMENDATION STATEMENTS: In patients <35 years with an ITN detected on CT, MRI, or extrathyroidal ultrasound, the Committee re commends further evaluation with dedicated thyroid ultrasound if the nodule is ?1 cm and has no suspi cious imaging features, and if the patient has normal life expectancy. In patients ?35 years with an ITN detected on CT, MRI, or extrathyroidal ultrasound, the Committee re commends further evaluation with dedicated thyroid ultrasound if the nodule is ?1.5 cm and has no paola picious imaging features, and if the patient has normal life expectancy. (ACR, 2014) Reviewed by: Dudley Thomas MD on 10/12/2020 3:24 PM PDT Approved by: Dudley Thomas MD on 10/12/2020 3:24 PM PDT Station ID: [id number]
--- NOTE | 2020-10-12 15:48 | CT Report ---
PROCEDURE: Abdomen/Pelvis WO INDICATIONS: BREAST AND SKIN CA TECHNIQUE: Noncontrast 5 mm thick sections acquired from the diaphragms to the symphysis. 5 mm coronal and sagi ttal reformats were then performed. For radiation dose reduction, the following was used: automated exposure control, adjustment of mA and/or kV according to patient size. COMPARISON: CT chest 04/26/2020, 10/12/2020. FINDINGS: Image quality: Excellent. ABDOMEN: Lung bases: There is mild atelectasis and scarring the lung bases. Heart size is normal. Solid organs: Noncontrast evaluation of the liver demonstrates no focal hepatic lesions. Multiple satnam cified gallstones are demonstrated in the gallbladder without wall thickening or pericholecystic flui d. The pancreas appears normal in contours without peripancreatic fat stranding or fluid collections. No pancreatic duct dilatation. The spleen is normal in size. No adrenal nodules. The kidneys demonst rate no hydronephrosis. Within the superior pole of the right kidney, there is an oval slightly hyper attenuating lesion measuring up to 1.1 x 1.0 cm. Within the left kidney, there is a oval slightly hyp erattenuating lesion measuring 1.5 x 1.1 cm. Findings are compatible with hyperdense hemorrhagic cyst s versus solid mass lesions. A cortical cyst is also demonstrated laterally in the right kidney. Peritoneum and bowel: Small bowel loops demonstrate normal wall thickness and caliber. There is mild segmental wall thickening in the sigmoid colon compatible with a nonspecific colitis. There is colon ic diverticulosis without definite acute diverticulitis. A moderate amount of colonic stool is presen t which may reflect constipation. A small amount of free fluid is demonstrated within the abdomen and pelvis including a small amount of perihepatic and perisplenic fluid in the upper quadrants. Nodes and vessels: No retroperitoneal or mesenteric adenopathy by size criteria. Aorta and inferior vena cava are normal in caliber. Miscellaneous: There is a small fat-containing periumbilical hernia. PELVIS: Genitourinary: Bladder wall thickness is normal. Numerous calcified mass lesions are demonstrated wi thin the uterus consistent with multiple uterine fibroids. Miscellaneous: No inguinal hernias or adenopathy. Bones: No suspicious bony lesions. No vertebral body compression fractures. IMPRESSION: 1. No definite evidence of metastatic disease with evaluation limited in the absence of intravenous c ontrast. 2. Bilateral hyperdense hemorrhagic renal cysts versus renal mass lesions. Recommend initial further evaluation with a renal ultrasound. 3. Cholelithiasis without evidence of cholecystitis. 4. Mild segmental wall thickening in the sigmoid colon suggestive of a mild colitis. Moderate colonic stool is also present which may reflect constipation. 5. Small amount of nonspecific free fluid in the abdomen and pelvis. Reviewed by: Dudley Thomas MD on 10/12/2020 3:47 PM PDT Approved by: Dudley Thomas MD on 10/12/2020 3:47 PM PDT Station ID: [id number]
== END 2020-10-12 09:47 | disposition home or self-care (01) ==
LOC: DI 09:46
PROVIDERS: ATTEND Internal Medicine Hematology & Oncology
DX: E04.2 Nontoxic multinodular goiter (principal); R93.422 Abnormal radiologic findings on diagnostic imaging of left kidney; K80.20 Calculus of gallbladder without cholecystitis without obstruction; R93.3 Abnormal findings on diagnostic imaging of other parts of digestive tract

== ENCOUNTER 2021-01-04 12:56 | Outpatient (CLI) | payer MEDICARE, OTHER ==
--- NOTE | 2021-01-04 15:02 | MRI Report ---
PROCEDURE: Lumbar Spine W/O INDICATIONS: R HIP PAIN TECHNIQUE: Noncontrast sagittal T1 spin echo and T2 fast echo, sagittal STIR, axial T1 and T2 fast spin echo thr ough the lumbar spine. In cases with scoliosis, additional coronal T2 fast spin echo may be performe d. COMPARISON: None. FINDINGS: Image quality: Excellent. Alignment and Curvature: There is normal bony alignment. Bone Marrow: Marrow is of normal overall signal. No acute vertebral body compression fractures. Spinal Cord: Conus medullaris terminates at the normal level. Visualized cord demonstrates normal s ignal and size. Regional Soft Tissues: No paravertebral masses. T12-L1: No spinal canal or neural foraminal stenosis. L1-L2: Mild spinal canal stenosis due to accommodation of diffuse disc bulge, superimposed broad-b ased posterior disc protrusion, bulky facet in particular, and buckling of the ligamentum flavum. The re is displacement of the descending L2 nerve root within the subarticular zones. Mild bilateral neur al foraminal stenosis due to foraminal component of the disc bulge and facet hypertrophy. L2-L3: Moderate spinal canal stenosis to examination of diffuse disc bulge, superimposed broad-bas ed posterior disc protrusion, buckling of the ligamentum flavum and bulky facet hypertrophy. Displace ment of the descending L3 nerve roots in both subarticular zones. Overall crowding of the traversing nerve roots with near complete effacement of the intervening CSF. Mild bilateral neural foraminal joy nosis, left greater than right, due to foraminal component of the disc bulge and facet hypertrophy. T here is also a far left lateral component of the disc bulge with displacement of the exiting left L2 nerve root. L3-L4: Severe spinal canal stenosis due to accommodation of diffuse disc bulge, superimposed broad- based posterior disc protrusion, bulky facet hypertrophy, buckling of the ligamentum flavum. There is complete effacement of CSF in the thecal sac at this level with crowding of the traversing nerve margo ts and laxity of the nerve roots above this level. Mild bilateral foraminal stenosis due to these fac tors. L4-L5: Moderate spinal canal stenosis due to a combination of diffuse disc bulge and superimposed d isc protrusion with buckling of the ligamentum flavum and facet hypertrophy. Displacement of the desc ending L5 nerve roots and both subarticular zones. Moderate right and mild left neural foraminal sten osis. L5-S1: Disc bulge without mass effect upon the traversing S1 nerve roots. Mild bilateral neural for aminal stenosis. IMPRESSION: 1. Severe spinal canal stenosis at L3-L4 and moderate spinal canal stenosis at L2-L3. 2. Varying degrees of neural foraminal stenosis at the moderate. 3. 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 Reviewed by: Red Marin MD on 01/04/2021 3:01 PM PDT Approved by: Red Marin MD on 01/04/2021 3:01 PM PDT Station ID: [id number]
--- NOTE | 2021-01-04 16:36 | MRI Report ---
PROCEDURE: Pelvis W/O INDICATIONS: RIGHT HIP PAIN TECHNIQUE: Noncontrast coronal T1 spin echo and STIR through the bony pelvis. Sagittal T2 FSE with fat saturati on, oblique axial PD FSE and T2 FSE with fat saturation through the symphysis pubis. COMPARISON: CT of abdomen and pelvis dated 10/12/2020. FINDINGS: Image quality: Excellent. Bones and joints: Moderate symmetric appearing bilateral hip joint osteophytic changes are seen with joint space narrowing, subchondral sclerosis and small marginal osteophyte formation. Small bilateral hip joint effusion is seen. There is no marrow edema. No fracture or dislocation. No evidence of lexi scular necrosis of femoral head. Subtle signal abnormality involving superior anterior right hip labr um is seen concerning for focal labral tear. No suspicious intraosseous lesion is noted. Degenerative disc disease in visualized lower lumbar spine is seen. Soft tissues: Mild tendinosis and low-grade partial-thickness tear involving right gluteus medius and minimus tendons near greater trochanter is seen. No other muscle or tendon signal abnormality is not ed. There is suggestion of small amount of free fluid in the visualized pelvis. Bulky appearing uteru s with suggestion of multiple calcified uterine fibroids are seen which is unchanged from previous CT study. No evidence of bowel obstruction. Visualized portion of bladder show no gross wall abnormalit y. IMPRESSION: 1. 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 No fracture or dislocation. No moreira spicious intraosseous lesion. No evidence of avascular necrosis of femoral head. 2. Subtle signal abnormality in superior anterior right hip labrum concerning for focal labral tear. 3. Mild tendinosis and low-grade partial-thickness tear involving distal right gluteus medius and min imus tendons at the level of greater trochanter. No other muscle or tendon signal abnormality. 4. Suggestion of calcified uterine fibroids also seen on previous CT of abdomen and pelvis study. Sma ll amount of free fluid is noted in lower pelvis. Reviewed by: Orville Zheng MD on 01/04/2021 4:35 PM PDT Approved by: Orville Zheng MD on 01/04/2021 4:35 PM PDT Station ID: [id number]
== END 2021-01-04 12:57 | disposition home or self-care (01) ==
LOC: DI 12:56
PROVIDERS: ATTEND Internal Medicine Hematology & Oncology
DX: M16.0 Bilateral primary osteoarthritis of hip (principal); R93.6 Abnormal findings on diagnostic imaging of limbs; R93.89 Abnormal findings on diagnostic imaging of other specified body structures; S76.021A Laceration of muscle, fascia and tendon of right hip, initial encounter; R93.5 Abnormal findings on diagnostic imaging of other abdominal regions, including retroperitoneum; M48.061 Spinal stenosis, lumbar region without neurogenic claudication; M48.07 Spinal stenosis, lumbosacral region; M51.26 Other intervertebral disc displacement, lumbar region; M47.816 Spondylosis without myelopathy or radiculopathy, lumbar region

== ENCOUNTER 2021-02-21 12:15 | Outpatient (CLI) | payer MEDICARE, OTHER | END 2021-02-21 12:16 | disposition home or self-care (01) | LOC: DI 12:15 | PROVIDERS: ATTEND Internal Medicine Hematology & Oncology | DX: Z53.9 Procedure and treatment not carried out, unspecified reason (principal) ==

== ENCOUNTER 2021-03-10 07:43 | Outpatient (CLI) | payer MEDICARE, OTHER ==
--- NOTE | 2021-03-11 09:01 | Ultrasound Report ---
LIMITED ULTRASOUND OF RIGHT BREAST AND AXILLA: 03/10/2021 CLINICAL: Palpable right breast lump. Comparison is made to exams dated: 03/10/2021 mammogram, 09/14/2017 breast MRI - [facility], 03/21/2012 mammogram, 03/21/2011 mammogram, 03/16/2010 mammogram, and 03/02/2009 mammogram - [facility]. Color flow and real-time ultrasound of the right breast 10-11 o'clock, and axilla regions were perfor med. Gottlieb scale images of the real-time examination were reviewed. There is a 3.2 cm x 2.6 cm x 1.6 cm irregular mass in the right breast at 11 o'clock posterior depth 8 cm from the nipple. This irregular mass is hypoechoic. This correlates as palpated and with mammo graphy findings. Color flow imaging demonstrates that there is vascularity present. Calcifications s een on mammogram are not appreciated. No significant abnormalities were seen sonographically in the right axilla. IMPRESSION: HIGHLY SUGGESTIVE OF MALIGNANCY The 3.2 cm x 2.6 cm x 1.6 cm irregular mass in the right breast is highly suggestive of malignancy. An ultrasound guided biopsy is recommended. Exam findings were discussed with the patient by Dr. Ildefonso Morgan. This exam was interpreted at Station ID: [id number]. Electronically Signed By: Geovanny James M.D. slc/:03/10/2021 10:46:23 Ultrasound BI-RADS: 5 Highly suggestive of malignancy BI-RADS CATEGORY: (5) - 5 None [id number] Immediate follow-up LATERALITY: ()
--- NOTE | 2021-03-11 09:01 | Ultrasound Report ---
LIMITED ULTRASOUND OF LEFT BREAST: 03/10/2021 CLINICAL: Focal left breast pain. Comparison is made to exams dated: 03/10/2021 mammogram, 09/14/2017 breast MRI - [facility], 03/21/2012 mammogram, 03/21/2011 mammogram, 03/16/2010 mammogram, and 03/02/2009 mammogram - [facility]. Real-time ultrasound of the left breast 2-4 o'clock region was performed. Gottlieb scale images of the r eal-time examination were reviewed. No significant abnormalities were seen sonographically in the left breast in the region of the palpab le abnormality. IMPRESSION: NEGATIVE There is no sonographic evidence of malignancy. A 1 year screening mammogram is recommended. Exam findings were discussed with the patient. Patient is advised to monitor for significant change. Clinical follow-up as needed. This exam was interpreted at Station ID: [id number]. Electronically Signed By: Geovanny James M.D. slc/:03/10/2021 10:41:13 Ultrasound BI-RADS: 1 Negative BI-RADS CATEGORY: (1) - 1 RECOMMENDATION: (ANNUAL) - Recommend routine annual screening mammography. [id number] 1 year screening LATERALITY: (B)
--- NOTE | 2021-03-11 09:01 | Mammography Report ---
BILATERAL DIGITAL DIAGNOSTIC MAMMOGRAM 3D/2D: 03/10/2021 CLINICAL: Palpable lumps in both breasts. Comparison is made to exams dated: 09/14/2017 breast MRI - [facility], 03/21/2012 ma mmogram, 03/21/2011 mammogram, and 03/16/2010 mammogram - Loc[facility]. The tissue of both breasts is heterogeneously dense. This may lower the sensitivity of mammography. There are new 3.7 cm grouped regional coarse heterogeneous calcifications in the right breast at 10 o 'clock posterior depth. Lumpectomy clips in the right breast upper inner quadrant. No other significant masses, calcifications, or other findings are seen in either breast. IMPRESSION: INCOMPLETE: NEEDS ADDITIONAL IMAGING EVALUATION The new 3.7 cm grouped regional coarse heterogeneous calcifications in the right breast are at a mode rate suspicion for malignancy. This is near the right breast palpable abnormality. A targeted ultrasound is recommended of the right and left breast palpable abnormalities and will imm ediately follow. This exam was interpreted at Station ID: [id number]. NOTE: For mammograms, a report in lay terms will be sent to the patient. Approximately 15% of breast malignancies will not be visualized mammographically. In the management of a palpable breast mass, a negative mammogram must not discourage biopsy of a clinically suspicious lesion. Electronically Signed By: Geovanny James M.D. slc/:03/10/2021 10:39:37 ACR BI-RADS Category 0: Incomplete 3340F PARENCHYMAL PATTERN: (D) - The breast(s) demonstrate(s) heterogeneously dense fibroglandular parenchy ma. BI-RADS CATEGORY: (0) - 0 Ultrasound [id number] Immediate follow-up LATERALITY: (B)
== END 2021-03-10 07:44 | disposition home or self-care (01) ==
LOC: DI 07:43
PROVIDERS: ATTEND Internal Medicine Hematology & Oncology
DX: N63.11 Unspecified lump in the right breast, upper outer quadrant (principal); N63.25 Unspecified lump in the left breast, overlapping quadrants; C79.81 Secondary malignant neoplasm of breast

== ENCOUNTER 2021-03-22 11:11 | Outpatient (CLI) | payer MEDICARE, OTHER ==
[~2021-03-22 11:11] MED LIST changes: +BUFFERED LIDOCAINE 10 ML SYRINGE ONE; -IOPAMIDOL-300 50 ML VIAL ONE; -IOVERSOL 320 100 ML VIAL IVP ONE
[2021-03-22] MEDS ORDERED: LIDOCAINE 1%-EPI 1:100000 20 ML MDV ID ONE (13:30)
[2021-03-22] MEDS ORDERED: BUFFERED LIDOCAINE 10 ML SYRINGE IU ONE (13:53)
--- NOTE | 2021-03-23 07:24 | Mammography Report ---
UNILATERAL RIGHT DIGITAL DIAGNOSTIC MAMMOGRAM 3D/2D - RIGHT BREAST POST-NEEDLE BIOPSY: 03/22/2021 CLINICAL: Post right breast ultrasound biopsy clip placement imaging. Comparison is made to exams dated: 03/22/2021 ultrasound biopsy, 03/10/2021 ultrasound, 03/10/2021 ul trasound, 03/10/2021 mammogram, 09/14/2017 breast MRI - [facility], and 03/21/2012 ma mmogram - [facility]. The tissue of right breast is heterogeneously dense. This may lower the s ensitivity of mammography. There is a marker clip in the appropriate position in the right breast at 10 o'clock posterior depth 8 cm from the nipple. This marker clip placement is at the biopsy site. This correlates with ultras ound findings and the biopsy. IMPRESSION: POST PROCEDURE MAMMOGRAM FOR MARKER PLACEMENT There was a successful marker clip placement in the right breast posterior depth. This exam was interpreted at Station ID: [id number]. NOTE: For mammograms, a report in lay terms will be sent to the patient. Approximately 15% of breast malignancies will not be visualized mammographically. In the management of a palpable breast mass, a negative mammogram must not discourage biopsy of a clinically suspicious lesion. Electronically Signed By: Jered Hartman M.D. aty/:03/22/2021 18:26:53 ACR BI-RADS Category Post-procedure mammogram for marker placement PARENCHYMAL PATTERN: (D) - The breast(s) demonstrate(s) heterogeneously dense fibroglandular parmerey nallely. BI-RADS CATEGORY: () - Unspecified - other recall n/a LATERALITY: (B)
--- NOTE | 2021-03-25 07:59 | Ultrasound Report ---
ULTRASOUND GUIDED BIOPSY RIGHT BREAST USING VACUUM DEVICE WITH MARKING DEVICE INSERTED AND POST MAMMO GRAPHIC IMAGIN03/22/2021 CLINICAL: Right breast mass. PATIENT CONSENT: Risks (minor bleeding, infection, vasovagal reaction and repeat procedure), benefits and alternatives were explained to the patient and written informed consent was obtained. Correlation is made to exams dated: 03/10/2021 ultrasound, 03/10/2021 mammogram, 09/14/2017 breast MR I - [facility], 03/21/2012 mammogram, 03/21/2011 mammogram, and 03/16/2010 mammogram - [facility]. An ultrasound guided biopsy using real-time ultrasound was performed for the indistinct irregular sha ped mass located in the right breast at 11 o'clock posterior depth 8 cm from the nipple. This was de scribed on the previous mammography and ultrasound reports. The skin was prepped in the usual manner . Local anesthetic was administered to the access site. A skin earline was made in the breast. The ab normality was approached from the lateral aspect. A 13 gauge biopsy needle was placed adjacent to th e abnormality under ultrasound guidance. Once the needle was documented to be in the correct locatio n, seven specimens were obtained using the Mammotome biopsy system. A clip was inserted into the bio psy cavity. A sterile dressing was applied to the access site. Post procedure mammographic imaging demonstrates the location device at the targeted area. The specimens were sent to the laboratory for pathological analysis. IMPRESSION: ULTRASOUND GUIDED BIOPSY MALIGNANT Ultrasound guided biopsy of the mass in the right breast at 11 o'clock posterior depth 8 cm from the nipple was successful. Pathology indicates malignant invasive ductal carcinoma (ID). Pathology resu lts are concordant with mammography and ultrasound findings. Surgical and oncologic consultation are recommended. This exam was interpreted at Station ID: [id number]. Jered hall,ramin/:03/24/2021 16:09:09 BI-RADS CATEGORY: () - Unspecified - other recall n/a LATERALITY: (B)
== END 2021-03-22 11:12 | disposition home or self-care (01) ==
LOC: DI 11:11
PROVIDERS: ATTEND Internal Medicine Hematology & Oncology
DX: C50.411 Malignant neoplasm of upper-outer quadrant of right female breast (principal); Z17.0 Estrogen receptor positive status [ER+]
CPT/HCPCS: 19083

== ENCOUNTER 2021-04-01 09:03 | Outpatient (CLI) | payer MEDICARE, OTHER ==
--- NOTE | 2021-04-01 16:41 | Nuclear Medicine Report ---
PROCEDURE: Bone Whole Body INDICATIONS: BREAST CA RADIOPHARMACEUTICAL: 25.4 mCi Tc-99m MDP IV. TECHNIQUE: Delayed whole-body scintigrams were obtained approximately 3-4 hours after intravenous injection of r adiotracer. Anterior and posterior views were acquired from vertex to feet. Additional left and rig ht oblique views of the skull and cervical spine were obtained. COMPARISON: Whole-body bone scan, 10/12/2020 and 04/26/2020. CT chest without contrast, 10/12/2020. CT abdomen and pelvis without contrast, 10/12/2020. FINDINGS: There is focal increased uptake in the right sternoclavicular junction/first costochondral junction, unchanged, compatible with degenerative change, which was evident on the comparison CT. No lesions are identified in calvarium, sternum, scapulae, clavicles, ribs, bony pelvis, and shafts of the long bones. Low level increased uptake in thoracic and lumbar spine is most likely degenerative i n nature; early metastatic disease could be obscured. There are foci of increased periarticular activ ity involving shoulders , wrists , hands, sacroiliac joints , hips , left knee, left ankle and both f eet, consistent with degenerative/arthritic changes. There is right knee arthroplasty. IMPRESSION: No definitive scintigraphic findings to suggest osseous metastasis. Reviewed by: Alfreda Gross MD on 04/01/2021 4:40 PM PST Approved by: Alfreda Gross MD on 04/01/2021 4:40 PM PST Station ID: [id number]
== END 2021-04-01 09:04 | disposition home or self-care (01) ==
LOC: DI 09:03
PROVIDERS: ATTEND Internal Medicine Hematology & Oncology
DX: C50.411 Malignant neoplasm of upper-outer quadrant of right female breast (principal)
CPT/HCPCS: 78306

== ENCOUNTER 2021-04-28 07:51 | Outpatient (CLI) | payer MEDICARE, OTHER | END 2021-04-28 07:52 | disposition home or self-care (01) | LOC: DI 07:51 | PROVIDERS: ATTEND Internal Medicine Hematology & Oncology | DX: C50.411 Malignant neoplasm of upper-outer quadrant of right female breast (principal); C50.912 Malignant neoplasm of unspecified site of left female breast; C77.3 Secondary and unspecified malignant neoplasm of axilla and upper limb lymph nodes; I34.8 Other nonrheumatic mitral valve disorders | CPT/HCPCS: 93306 ==

== ENCOUNTER 2021-04-29 13:01 | Day surgery (SDC) | payer MEDICARE, OTHER ==
[~2021-04-29 13:01] MED LIST changes: -BUFFERED LIDOCAINE 10 ML SYRINGE ONE; +LIDOCAINE-MPF 2% 5 ML VIAL ONE; +PROPOFOL 500 MG/50 ML 500 MG/50 ML VIAL ONE
[2021-04-29] MEDS ORDERED: LACTATED RINGERS 1,000 ML IV ONE ×2 (13:05→15:01)
--- NOTE | 2021-04-29 13:29 | ANESTHESIA ---
Pre-Anesthesia VS, & Labs - Diagnosis breast CA - Procedure port placement Vital Signs: Temp Pulse Resp BP Pulse Ox 37 C 100 22 146/67 H 98 04/29/21 13:06 04/29/21 13:06 04/29/21 13:06 04/29/21 13:06 04/29/21 13:06 Height: 5 ft 10 in Weight (kg): 76.3 kg Body Mass Index: 24.1 BMI Classification: Healthy weight - NPO >8 hours - Is Patient ?: No - Lab Results Lab results reviewed: Yes Home Medications and Allergies Atorvastatin Calcium 40 mg PO BID 10/12/15 Losartan [Cozaar] 50 mg PO BID 10/12/15 hydroCHLOROthiazide [Hydrodiuril] 25 mg PO DAILY 10/12/15 metFORMIN [Glucophage] 500 mg PO BID 09/18/17 Palbociclib [Ibrance] 100 mg PO DAILY 07/30/18 Ca/D3/Mag Ox/Zinc/Mine Geologist/Paul/Bor [Calcium 098-I2-Tktmkkro Chw Tb] 1,200 mg PO DAILY 07/31/19 Fulvestrant [Faslodex] 500 mg IM UD 04/26/21 Allergies/Adverse Reactions: Allergies Allergy/AdvReac Type Severity Reaction Status Date / Time No Known Drug Allergies Allergy Verified 01/25/21 15:22 Anes History & Medical History - Anesthetic History Anesthesia Complications: reports: No previous complications Family history of Anesthesia Complications: Denies Family history of Malignant Hyperthermia: Denies - Medical History Cardiovascular: reports: Hypertension, High cholesterol Pulmonary: reports: None Gastrointestinal: reports: None Urinary: reports: None Musculoskeletal: reports: None Endocrine/Autoimmune: reports: Type 2 diabetes Skin: reports: None Smoking Status: Never smoker - Surgical History General: reports: Colonoscopy Eyes Ears Nose Throat (EENT): reports: Cataracts Orthopedic: reports: Knee replacement, Other Exam General: Alert, Oriented x3, Cooperative Dental: WNL Mouth Openin Fingerbreadth Neck Mobility: Normal Mallampati classification: II Thyromental Distance: 4-6 cm Respiratory: Lungs clear, Normal breath sounds, No respiratory distress Plan Anesthesia Type: General (backup), Total IV Consent for Procedure(s) Verified and Reviewed: Yes Code Status: Attempt Resuscitation ASA classification: 3-Severe systemic disease Is this case an emergency?: No
[2021-04-29] MEDS ORDERED: BUPIVACAINE 0.5% PF 10 ML VIAL ONE (13:38)
[2021-04-29] MEDS ORDERED: MIDAZOLAM 2 MG/2 ML VIAL ONE (13:41)
[2021-04-29] MEDS ORDERED: CEFAZOLIN SODIUM IN 0.9 % NACL 2 GM/100 ML BAG IV ONE (13:51)
[2021-04-29] MEDS ORDERED: BUPIVACAINE 0.5% PF 30 ML VIAL SUBQ ONE ×3 (14:27)
--- NOTE | 2021-04-29 15:06 | OPERATIVE REPORT ---
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 No pneumothorax. Complications: None. - Other Other Information/Narrative: After verbal and written informed consent was obtained detailing the operation, the alternatives the operation including no operation, risks of infection, bleeding requiring transfusion with its risks, nerve injury, and and after I met with the patient confirming the surgery and the site of surgery, the patient was brought to the operative suite and placed supine on the operating table. Great care was taken to avoid pressure points to prevent pressure necrosis or nerve injury. Monitoring devices were applied along with TEDs and pneumatic compression stockings (to prevent DVT). The patient received preoperative antibiotics for surgical prophylaxis. Satinder Ramsey CRNA sedated and anesthetized the patient for the entire procedure. The patient was prepped and draped in the usual sterile manner. With the patient draped my initials wer e clearly visible. A "time in" then confirmed that the patient was identified with 3 identifiers (name, date, and medical record number), the history and physical was updated and in the chart, the signed consent confirming the procedure was in the chart, the patient was in the correct position, the aforementioned prophylactic measures were in place or given, we had the correct personnel and equipment to complete the procedure and that anesthesia and the surgical team were given an opportunity to express any concerns. With the agreement of everyone in the room we proceeded with the operation. After anesthetizing the left subclavian area with half percent Marcaine, the finder needle was inserted into the left subclavian vein and with good blood return the syringe was removed and a wire placed. The wire went to 30 cm with some cardiac irritability confirming placement down towards the heart. The needle was removed and the needle insertion site widened with the aid of a scalpel and a Santa. The port site was selected further down and slightly laterally on the chest wall and this was anesthetized again using half percent Marcaine. A transverse incision was made and dissection was carried out down to the fascia using Bovie electrocautery. Hemostasis was obtained using Bovie electrocautery. The pouch was then created primarily using blunt dissection and again using Bovie electrocautery for hemostasis. The catheter was obtained and attached to the passer. The passer was then used to pass the catheter from the needle insertion site to the port site. The catheter was then measured against the anterior chest wall and cut at 24 cm which allowed for the tip to be 2 cm below the manubrial-sternal junction. The catheter was then secured to the port using the supplied hub. The port and catheter were then flushed using heparinized saline. The port was put in position in the pouch and secured to the fascia using a 3-0 Prolene suture. Great care was taken to ensure that the catheter was not kinked. The dilator was placed over the wire taking great care to ensure that the wire was always visible. The dilator was removed and wiped down using a saline soaked gauze. The dilator and sheath were then placed over the wire again taking great care to ensure that the wire was always visible. The dilator and wire were then removed leaving the sheath in position. The catheter was then placed into the sheath using DeBakey pickups and while holding the catheter in place the sheath was torn away leaving the catheter in position. A Willson needle was then used to access the port and there was excellent blood return and easy flush. A chest x-ray was then obtained that showed the catheter to be in good position in the supracardiac vena cava without pneumothorax. The port site subcutaneous tissues were approximated using an interrupted 3-0 Vicryl suture. The skin incisions were approximated with 4-0 Monocryl in a subcuticular fashion. The skin was cleaned of its prep and Dermabond was applied. At this point a timeout was performed that confirmed that all counts were correct x2, the procedure that was performed, the blood loss, the IV fluids administered, the patient's condition, and any concerns of the operating team had. Having tolerated the procedure well, the patient was taken recovery room in good and stable condition. The plan is for outpatient discharge when the patient is adequately recovered. This document was created in part using voice recognition technology. Because of the inherent limitations of the system, occasional same sounding word substitutions and grammatical errors do occur and persist despite proofreading. Please read this document for content.
[2021-04-29] MEDS ORDERED: HYDROcod/ACETAM 5/325 MG TABLET PO PRN (15:14)
[2021-04-29] MEDS ORDERED: HYDROmorphone 0.5 MG/0.5 ML SYRINGE IVP PRN (15:14)
[2021-04-29] MEDS ORDERED: ONDANSETRON 4 MG/2 ML VIAL IVP PRN (15:14)
--- NOTE | 2021-04-29 15:30 | ANESTHESIA POST OP EVALUATION ---
Anesthesia Post Eval - Post Anesthesia Eval Vitals: Last Vital Signs Temp 37 C 04/29/21 15:16 Pulse 90 04/29/21 15:16 Resp 14 04/29/21 15:16 BP 113/64 04/29/21 15:16 Pulse Ox 98 04/29/21 15:16 CV Function Including HR & BP: Stable Pain Control: Satisfactory Nausea & Vomiting: Negative Mental Status: Baseline Respiratory Status: Airway Patent Hydration Status: Satisfactory Anesthesia Complications: None
[2021-04-29 15:55] VITALS: BP 128/74
--- NOTE | 2021-04-29 16:30 | XRAY Report ---
PROCEDURE: Chest for Line Placement INDICATIONS: line placement TECHNIQUE: One view of the chest was acquired. COMPARISON: None FINDINGS: Surgical changes and devices: Left-sided port is present distal tip projecting over the proximal SVC. Lungs and pleura: There is blunting of the right costophrenic angle. No consolidations. Mediastinum: Mediastinal contours appear normal. Heart size is normal. Bones and chest wall: No suspicious bony lesions. Overlying soft tissues appear unremarkable. IMPRESSION: 1. Costophrenic angle blunting on the right suggestive of trace effusions. Reviewed by: Margaret Little MD on 04/29/2021 4:28 PM PST Approved by: Margaret Little MD on 04/29/2021 4:28 PM PST Station ID: [id number]
== END 2021-04-29 13:02 | disposition home or self-care (01) ==
LOC: SDS 13:01
PROVIDERS: ATTEND Surgery
DX: C50.912 Malignant neoplasm of unspecified site of left female breast (principal); C50.911 Malignant neoplasm of unspecified site of right female breast
CPT/HCPCS: 36561; 71045; C1788; J0690; J7120

== ENCOUNTER 2021-05-02 07:46 | Outpatient (CLI) | payer MEDICARE, OTHER ==
[2021-05-02] MEDS ORDERED: GADOBUTROL 7.5 MMOL/7.5 ML VIAL ONE (08:12)
[2021-05-02 08:26] LABS: CREATININE 1.3 mg/dL (0.4-1.0)
--- NOTE | 2021-05-02 11:01 | MRI Report ---
PROCEDURE: Brain W/WO INDICATIONS: BREAST CA CONTRAST: IV CONTRAST: Gadavist ml: 7.5 TECHNIQUE: Noncontrast axial T1 spin echo, axial T2 fast spin echo, sagittal and axial FLAIR, coronal T2 fast sp in echo, axial gradient echo, axial diffusion and ADC through the brain. After the administration of contrast, axial and coronal T1 spin echo with fat saturation through the brain. COMPARISON: None. FINDINGS: Image quality: Degraded by patient motion artifact. CSF spaces: Basal cisterns are patent. No extra-axial fluid collections. Ventricles are normal in size and shape. Brain: No midline shift. No intracranial bleeds or masses. No abnormal intracranial enhancement. There is mild cerebral volume loss for age. There is moderate periventricular white matter chronic s mall vessel ischemic change. The brainstem appears normal. Diffusion-weighted images demonstrate no acute ischemic insults. Small chronic lacunar infarcts noted in the left putamen, left caudate head and right cerebellar hemisphere. Normal intravascular flow voids are present. Dural sinuses demonstra te normal postcontrast enhancement. Skull and face: Calvarial marrow is normal in signal. Orbits appear normal. Sinuses: Mild mucosal thickening in the right maxillary sinus and left sphenoid sinus. Mastoids appea r clear. IMPRESSION: 1. No acute intracranial disease process. 2. No metastatic disease. 3. Small chronic left putamen, left caudate head and right cerebellar hemisphere lacunar infarcts. 4. Mild, diffuse cerebral volume loss. 5. Moderate periventricular and subcortical white matter chronic microvascular ischemic change. Reviewed by: Francy Mcbride MD, PhD on 05/02/2021 11:00 AM [facility] Approved by: Francy Mcbride MD, PhD on 05/02/2021 11:00 AM [facility] Station ID: [id number]
[2021-05-02] MEDS ORDERED: GADOBUTROL 7.5 MMOL/7.5 ML VIAL IVP ONE (16:20)
== END 2021-05-02 07:47 | disposition home or self-care (01) ==
LOC: DI 07:46
PROVIDERS: ATTEND Internal Medicine Hematology & Oncology
DX: C50.411 Malignant neoplasm of upper-outer quadrant of right female breast (principal); C50.912 Malignant neoplasm of unspecified site of left female breast; C77.3 Secondary and unspecified malignant neoplasm of axilla and upper limb lymph nodes; Z86.73 Personal history of transient ischemic attack (TIA), and cerebral infarction without residual deficits; I67.82 Cerebral ischemia
CPT/HCPCS: 36415; 70553; 82565; A9585

== ENCOUNTER 2021-05-04 13:59 | Outpatient (CLI) | payer MEDICARE, OTHER ==
--- NOTE | 2021-05-04 14:44 | XRAY Report ---
PROCEDURE: Chest 2 View X-Ray INDICATIONS: NEW PORT-A-CATH NOT WORKING TECHNIQUE: 2 view(s) of the chest. COMPARISON: CXR 04/29/2021. CT chest 04/13/2021. FINDINGS: Surgical changes and devices: Left port with the catheter tip at the middle third of the SVC. No kink . The left-sided port appears unchanged. Right breast clips. Lungs and pleura: Small right pleural effusion. No pneumothorax. Mild bibasilar atelectasis. Decrease d pulmonary vasculature engorgement. Mediastinum: Mediastinal contours are normal. Heart size is normal. Bones and chest wall: No suspicious bony abnormalities. Soft tissues appear unremarkable. IMPRESSION: Left-sided port with the catheter tip projecting at the middle third of the SVC is unchanged in appea jodi. Small right pleural effusion. Decreased pulmonary vasculature engorgement. Reviewed by: Geovanny Jaems MD on 05/04/2021 2:43 PM PST Approved by: Geovanny James MD on 05/04/2021 2:43 PM PST Station ID: [id number]
== END 2021-05-04 14:00 | disposition home or self-care (01) ==
LOC: DI 13:59
PROVIDERS: ATTEND Surgery
DX: T82.594A Other mechanical complication of infusion catheter, initial encounter (principal); Z45.2 Encounter for adjustment and management of vascular access device; J90 Pleural effusion, not elsewhere classified

== ENCOUNTER 2021-06-23 12:00 | Outpatient (CLI) | payer MEDICARE, OTHER ==
--- NOTE | 2021-06-24 08:10 | Ultrasound Report ---
LIMITED ULTRASOUND OF RIGHT BREAST AND AXILLA: 06/23/2021 CLINICAL: Patient returns for additional imaging over a suspected mass in the right breast. Short ter m follow up of the right breast. History of rt breast cancer. Comparison is made to exams dated: 03/22/2021 mammogram, 03/22/2021 ultrasound biopsy, 03/10/2021 ultr asound, 03/10/2021 ultrasound, 03/10/2021 mammogram, and 09/14/2017 breast MRI - [facility]. Color flow and real-time ultrasound of the right breast 9-12 o'clock, and axilla regions were perform ed. Gottlieb scale images of the real-time examination were reviewed. Redemonstration of previously described 3 cm x 1.2 cm x 1.8 cm irregular mass with an indistinct glynn in in the right breast at 11 o'clock posterior depth 8 cm from the nipple. This mass previously measu red 2.7 cm x 1.7 cm x 2.9cm. This irregular mass is of mixed echogenicity. This abnormality is decr eased in size and less prominent and correlates with ultrasound findings and the previous biopsy. [place] flow imaging demonstrates that there is vascularity present. There is also a new 1.2 cm x 0.6 cm x 1 cm irregular mass with an angular margin in the right breast at 11 o'clock posterior depth 4 cm from the nipple. This irregular mass is hypoechoic. Color flow imaging demonstrates that there is a n adjacent vascularity. This mass is noted in close vicinity to the biopsy proven malignancy and is likely a satellite lesion . The two masses are approximately 2.3cm apart from each other. No significant abnormalities were seen sonographically in the right axilla. IMPRESSION: KNOWN BIOPSY PROVEN MALIGNANCY The 3 cm x 1.2 cm x 1.8 cm irregular mass in the right breast at 11 o'clock posterior depth is consis tent with the known biopsy proven malignancy and appears stable to mildly decreased in size. There is also a new 1.2 cm x 0.6 cm x 1 cm irregular mass in the right breast at 11 o'clock posterior depth likely representing a satellite lesion. It is in close vicinity to the index mass measuring ap proximately 2.3cm apart. If needed for surgical/treatment management, further evaluation with ultraso und guided biopsy can be considered. This exam was interpreted at Station ID: [id number]. Electronically Signed By: Jered Hartman M.D. aty/:06/23/2021 15:00:51 Ultrasound BI-RADS: 6 Known biopsy proven malignancy BI-RADS CATEGORY: (6) - 6 Unspecified - other recall n/a LATERALITY: (B)
== END 2021-06-23 12:01 | disposition home or self-care (01) ==
LOC: DI 12:00
PROVIDERS: ATTEND Internal Medicine Hematology & Oncology
DX: C50.919 Malignant neoplasm of unspecified site of unspecified female breast (principal)

== ENCOUNTER 2021-09-30 07:54 | Day surgery (SDC) | payer MEDICARE, OTHER ==
[~2021-09-30 07:54] MED LIST changes: +CEFAZOLIN SODIUM IN 0.9 % NACL 2 GM/50 ML BAG IV ONE; -LIDOCAINE-MPF 2% 5 ML VIAL ONE; -PROPOFOL 500 MG/50 ML 500 MG/50 ML VIAL ONE
[2021-09-30] MEDS ORDERED: LACTATED RINGERS 1,000 ML IV ONE ×2 (08:26→12:15)
[2021-09-30] MEDS ORDERED: METOCLOPRAMIDE 10 MG/2 ML VIAL IVP PRN (09:01)
[2021-09-30] MEDS ORDERED: MORPHINE 2 MG/ML CARPUJECT IVP PRN (09:01)
[2021-09-30] MEDS ORDERED: NALOXONE 0.4 MG/ML VIAL IVP PRN (09:01)
[2021-09-30] MEDS ORDERED: ePHEDrine 50 MG/ML VIAL IVP PRN (09:01)
[2021-09-30] MEDS ORDERED: ONDANSETRON 4 MG/2 ML VIAL IVP PRN ×2 (09:01→12:08)
[2021-09-30] MEDS ORDERED: fentaNYL 100 MCG/2 ML VIAL IVP PRN (09:01)
[2021-09-30] MEDS ORDERED: ATROPINE ABBOJECT 1 MG/10 ML SYRINGE IVP PRN (09:01)
[2021-09-30] MEDS ORDERED: HYDROmorphone 0.5 MG/0.5 ML SYRINGE IVP PRN ×2 (09:01→12:08)
--- NOTE | 2021-09-30 09:01 | ANESTHESIA ---
Pre-Anesthesia VS, & Labs - Diagnosis breast cancer - Procedure right mastectomy Vital Signs: Temp Pulse Resp BP Pulse Ox 37.4 C 99 24 135/58 H 98 09/30/21 08:15 09/30/21 08:15 09/30/21 08:15 09/30/21 08:15 09/30/21 08:15 Height: 5 ft 10 in Weight (kg): 70.5 kg Body Mass Index: 22.3 BMI Classification: Healthy weight - NPO >8 hours - Is Patient ?: No - Lab Results Current Lab Results: Laboratory Tests 09/30/21 08:27: POC Whole Bld Glucose 133 H Home Medications and Allergies Home Medications: Ambulatory Orders metFORMIN [Glucophage] 750 mg PO BID 09/26/21 Atorvastatin Calcium 40 mg PO BID 10/12/15 Losartan [Cozaar] 50 mg PO BID 10/12/15 hydroCHLOROthiazide [Hydrodiuril] 25 mg PO DAILY 10/12/15 Potassium Chloride [K-Dur] 1 tab PO DAILY 07/05/21 metFORMIN [Glucophage] 750 mg PO BID 09/26/21 Allergies/Adverse Reactions: Allergies Allergy/AdvReac Type Severity Reaction Status Date / Time No Known Drug Allergies Allergy Verified 09/30/21 08:38 Anes History & Medical History - Anesthetic History Anesthesia Complications: reports: No previous complications - Medical History Cardiovascular: reports: Hypertension, High cholesterol Pulmonary: reports: None, Pneumonia Gastrointestinal: reports: None Urinary: reports: None Musculoskeletal: reports: Osteopenia Endocrine/Autoimmune: reports: Type 2 diabetes Skin: reports: None Smoking Status: Never smoker History of Cancer?: Yes - Surgical History General: reports: Colonoscopy Eyes Ears Nose Throat (EENT): reports: Cataracts, Tonsil/Adenoidectomy Orthopedic: reports: Knee replacement, Other Exam General: Alert, Oriented x3 Dental: WNL Mouth Opening: Greater than 4 Fingerbreadths Mallampati classification: II Respiratory: Lungs clear Cardiovascular: Regular rate Plan Anesthesia Type: General Consent for Procedure(s) Verified and Reviewed: Yes Code Status: Attempt Resuscitation ASA classification: 2-Mild systemic disease Is this case an emergency?: No
[2021-09-30] MEDS ORDERED: BUPIVACAINE 0.25% PF 10 ML VIAL SUBQ ONE (09:15)
[2021-09-30] MEDS ORDERED: BUPIVACAINE 0.25% PF 10 ML VIAL ONE (09:16)
[2021-09-30] MEDS ORDERED: PROPOFOL 200 MG/20 ML VIAL IVP ONE (09:30)
[2021-09-30] MEDS ORDERED: LIDOCAINE-MPF 2% 5 ML VIAL ONE (09:31)
[2021-09-30] MEDS ORDERED: fentaNYL 100 MCG/2 ML VIAL ONE ×2 (09:31→12:00)
[2021-09-30] MEDS ORDERED: LACTATED RINGERS 1,000 ML IV SCH (10:00)
[2021-09-30] MEDS ORDERED: ACETAMINOPHEN 1,000 MG/100 ML 100 ML IV ONE (11:11)
[2021-09-30] MEDS ORDERED: HYDROcod/ACETAM 5/325 MG TABLET PO PRN (12:08)
--- NOTE | 2021-09-30 12:12 | OPERATIVE REPORT ---
Operative Report - General Procedure Date: 09/30/21 Planned Procedure: Right modified radical mastectomy Pre-Op Diagnosis: Bilateral breast cancer (right intraductal, left papillary) Procedure Performed: Right modified radical mastectomy Post Op Diagnosis: Same - Procedure Note Primary Surgeon: Lawrence Watt MD Anesthesia Provider: Nancy Bryant CRNA Anesthesia Technique: General mask IV Fluids (mL): 1,100 Estimated Blood Loss (mL): 30 Drain/Tube Type: Lan drain (19 Cook Islander in the inferior axillary position coming across the chest wall) Indications: As above. Findings: 2 palpable right breast lesions cleared widely with resection single palpable lymph node in the mid axilla removed separately Complications: None. - Other Other Information/Narrative: After verbal and written informed consent was obtained detailing the operation, the alternatives the operation including no operation, risks of infection, bleeding requiring transfusion with its risks, nerve injury, and and after I met with the patient confirming the surgery and the site of surgery, the patient was brought to the operative suite and placed supine on the operating table. Great care was taken to avoid pressure points to prevent pressure necrosis or nerve injury. Monitoring devices were applied along with TEDs and pneumatic compression stockings (to prevent DVT). The patient received preoperative antibiotics for surgical prophylaxis. Nancy Bryant CRNA sedated and anesthetized the patient for the entire procedure. The patient was prepped and draped in the usual sterile manner. With the patient draped my initials were clearly visible. A "time in" then confirmed that the patient was identified with 3 identifiers (name, date, and medical record number), the history and physical was updated and in the chart, the signed consent confirming the procedure was in the chart, the patient was in the correct position, the aforementioned prophylactic measures were in place or given, we had the correct personnel and equipment to complete the procedure and that anesthesia and the surgical team were given an opportunity to express any concerns. With the agreement of everyone in the room we proceeded with the operation. An elliptical incision was made starting at the right aspect of the sternum and extending into the lower axilla and encompassing the nipple areolar complex. This was taken to the subcutaneous tissues using Bovie electrocautery. Upper and lower flaps were raised using Bovie electrocautery. Small perforating b leeders were controlled using Bovie electrocautery. Every attempt was made to have the flaps substantial but as thin as possible. The upper dissection was taken to the clavicle and the lower dissection was taken down to the breast crease. Once this was the flaps were completed I started the dissection medially and resected the breast tissue off the pectoralis major fascia using Bovie electric cautery.. Again small perforating vessels were controlled using Bovie electrocautery. Laterally the dissection proceeded past the pectoralis major onto the pectoralis minor and no Javy's nodes were noted. Pursuant to my conversation with the patient a formal run x-ray dissection was not intended and was not done. Rather I followed the tail of Gandhi up into the axilla and sampled the lymph nodes. The highest palpable lymph node was resected separately and sent separately for pathologic evaluation. The breast was sent to pathology for evaluation. Meticulous hemostasis was obtained using Bovie electrocautery. The pectoralis major fascia as well as all the subcutaneous tissues and axilla were copiously irrigated using warm sterile water. A separate stab incision was placed laterally and through the stab incision was placed a 19 [place] Islander Lan drain which was directed across the chest wall. The drain was secured to the skin using a 3-0 nylon suture which was Andrés sandaled about the drain. The subcutaneous tissues were approximated using interrupted 2-0 Vicryl sutures. The skin incision was approximated with 4-0 Monocryl in a subcuticular fashion. The skin was cleaned of its prep and Dermabond was applied. At this point a timeout was performed that confirmed that all counts were correct x2, the procedure that was performed, the blood loss, the IV fluids administered, the patient's condition, and any concerns of the operating team had. Having tolerated the procedure well, the patient was taken recovery room in good and stable condition. The plan is for outpatient discharge when the patient is adequately recovered. This document was created in part using voice recognition technology. Because of the inherent limitations of the system, occasional same sounding word substitutions and grammatical errors do occur and persist despite proofreading. Please read this document for content.
[2021-09-30] MEDS ORDERED: HYDROcod/ACETAM 5/325 MG TABLET ONE (14:51)
[2021-09-30 14:52] VITALS: BP 138/63
--- NOTE | 2021-09-30 15:31 | ANESTHESIA POST OP EVALUATION ---
Anesthesia Post Eval - Post Anesthesia Eval Vitals: Last Vital Signs Temp 36.9 C 09/30/21 14:50 Pulse 87 09/30/21 14:50 Resp 17 09/30/21 14:50 BP 138/63 H 09/30/21 14:50 Pulse Ox 97 09/30/21 14:50 CV Function Including HR & BP: Stable Pain Control: Satisfactory Nausea & Vomiting: Negative Mental Status: Baseline Respiratory Status: Airway Patent Hydration Status: Satisfactory Anesthesia Complications: None
== END 2021-09-30 07:55 | disposition home or self-care (01) ==
LOC: SDS 07:54
PROVIDERS: ATTEND Surgery
PROC: 0HBT0ZZ Excision of Right Breast, Open Approach (ICD-10-PCS; principal; 2021-09-30 09:15)
DX: C50.811 Malignant neoplasm of overlapping sites of right female breast (principal); C50.112 Malignant neoplasm of central portion of left female breast; Z17.0 Estrogen receptor positive status [ER+]; E11.9 Type 2 diabetes mellitus without complications; Z79.84 Long term (current) use of oral hypoglycemic drugs

== ENCOUNTER 2022-07-02 14:32 | Outpatient (CLI) | payer MEDICARE, OTHER | END 2022-07-02 14:33 | disposition critical access hospital (66) | LOC: EMS 14:32 | DX: S00.83XA Contusion of other part of head, initial encounter (principal); R51.9 Headache, unspecified; R41.0 Disorientation, unspecified; W18.30XA Fall on same level, unspecified, initial encounter; Y93.89 Activity, other specified; Y92.832 Beach as the place of occurrence of the external cause | CPT/HCPCS: A0425; A0429 ==

== ENCOUNTER 2022-07-02 14:52 | Emergency (ER) | payer MEDICARE, OTHER ==
--- NOTE | 2022-07-02 15:15 | ED Physician Documentation ---
History of Present Illness - Stated complaint Stated Complaint: GLF - Chief complaint Chief Complaint: Trauma Hd/Nk - Additonal information Additional information: 86-year-old female presents to the emergency department after a [place] striking her head on the sand and some rocks. There was no loss of consciousness. Patient denies that she is on blood thinners. She and her were at the beach to feed the birds. He is also with the and appears fairly demented. Per the patient she [place] [facility] [place]. However she has never been treated here in the ER before. She presents with no focal deficits. Review of Systems Constitutional: denies: Fever, Chills Eyes: reports: Reviewed and negative Cardiac: reports: Chest pain / pressure, Palpitations Respiratory: reports: Dyspnea, Cough GI: reports: Abdominal Pain Skin: reports: Laceration (s) (Left lateral forehead) Musculoskeletal: denies: Neck pain Neurologic: reports: Headache, Head injury. 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: Breast cancer : None HEENT: None Psych: Anxiety Musculoskeletal: None Derm: None - Past Surgical History General: Colonoscopy Ortho: Knee replacement, Other HEENT: Cataracts - Present Medications Home Medications: Ambulatory Orders Medication Instructions Recorded Confirmed Atorvastatin Calcium 40 mg PO BID 10/12/15 06/20/22 Losartan [Cozaar] 50 mg PO BID 10/12/15 06/20/22 hydroCHLOROthiazide [Hydrodiuril] 25 mg PO DAILY 10/12/15 06/20/22 Potassium Chloride [K-Dur] 1 tab PO DAILY 07/05/21 06/20/22 Magnesium Oxide 400 mg PO DAILY 05/09/22 06/20/22 - Allergies Allergies/Adverse Reactions: Allergies Allergy/AdvReac Type Severity Reaction Status Date / Time No Known Drug Allergies Allergy Verified 07/02/22 14:57 - Social History Does the pt smoke?: No Smoking Status: Never smoker - POLST Patient has POLST: No PD ED PE NORMAL - General General: Alert and oriented X 3, No acute distress, Well developed/nourished, Other (Very hard of hearing) - HEENT HEENT: Moist mucous membranes, Pharynx benign. No: Atraumatic (Large abrasion 4 x 4 cm with a centralized irregular laceration left lateral forehead.) - Neck Neck: Supple, no meningeal sign, No adenopathy - Cardiac Cardiac: RRR, No murmur - Respiratory Respiratory: No respiratory distress, Clear bilaterally - Abdomen Abdomen: Normal bowel sounds, Soft - Back Back: No spinal TTP - Derm Derm: Normal color, Warm and dry, No rash - Extremities Extremities: No deformity, No tenderness to palpate, Normal ROM s pain - Neuro Neuro: Alert and oriented X 3, side framer 2-12 intact, No motor deficit, No sensory deficit, Normal speech Eye Opening: Spontaneous Motor: Obeys Commands Verbal: Oriented GCS Score: 15 Results - Vitals Vitals: Vital Signs - 24 hr 07/02/22 07/02/22 14:57 15:00 Temperature 36.5 C Heart Rate 100 117 H Respiratory 18 15 Rate Blood Pressure 170/90 H 145/98 H O2 Saturation 100 100 Oxygen O2 Source Room air - Rads (name of study) CT head Radiology: Final report received (Moderate scalp hematoma involving left temporal region without associated calvarial fracture. No intracranial hemorrhage is seen. No significant intracranial abnormality is seen) cervical CT Radiology: Final report received (Left-sided chest port. Right-sided thyroid nodule, poorly seen) Procedures - Laceration (location) left scalp Length in cm: 3.5 Wound type: Irregular, Into subcut fat Tendon involvement: Tendon intact Skin layer closure: [place] Other: Patient tolerated well, No complications, Neurovascular intact (3 kimberli), Tetanus booster given PD Medical Decision Making - ED course Complexity details: reviewed results, re-evaluated patient, d/w patient ED course: 86-year-old female presents emergency department via EMS for evaluation of a witnessed fall that occurred [place] the beach due to uneven surfaces. This was not a syncopal episode. Patient presents alert and oriented though she does not remember why she fell. She is not on blood thinners. In review of our chart here she has been seen by the [facility] only. She tells me that she was being seen for a history of breast cancer. On presentation she is very hard of hearing but has no focal neuro deficits. She does have a large abrasion and laceration on her left lateral frontal scalp. No active bleeding. Given that this was a witnessed mechanical fall she did obtain a CT of the head and neck without any findings of acute intracranial injury or C-spine fracture. The wound was thoroughly irrigated with saline, and chlorhexidine. It was easily closed with 3 kimberli and bacitracin applied over She did pass a road test with a stable gait though. She would benefit from a walker to help prevent falls in the first future though the patient refuses this. Her who is in attendance with her appears severely demented. Patient tells me that she and her both live together. She feels safe and comfortable with discharge home. Departure - Departure Disposition: 01 Home, Self Care Clinical Impression: Ground-level fall Scalp abrasion Qualifiers: Encounter type: initial encounter Qualified Code(s): S00.01XA - Abrasion of scalp, initial encounter Scalp laceration Qualifiers: Encounter type: initial encounter Qualified Code(s): S01.01XA - Laceration without foreign body of scalp, initial encounter Condition: Stable Record reviewed to determine appropriate education?: Yes Comments: Kyra reynolds tripped [place] the beach and fell. You presented to the ER with a large abrasion and laceration on your left lateral forehead. This was thoroughly irrigated and closed with 3 kimberli. These need to remain in place for about 14 days. They can be removed at any urgent care, primary care office or return visit to the ER. We did do a CT of your head and neck without any worrisome findings. If over the next few days you develop any sudden severe headache, have uncontrolled vomiting, slurred speech, facial droop return immediately to the ER. We did monitor your ambulation here in the ER. You would benefit from a walker though you have declined this. I encourage you to follow closely with your primary care doctor.
--- OUTSIDE RECORDS SUMMARY | 2022-07-02 15:26 | EXTERNAL MEDICAL SUMMARY RPT | Continuity of Care Document ---
:1935 Author Organization [facility] Address [address] [place] [address] Phone Care Team Providers Name Role Phone Lawrence Delgado Unavailable Unavailable Allergies and Intolerances date description facility type (no date) [facility] (unknown) Encounters No information. Functional Status No information. Immunizations No information. Medications date description facility 2022-05-04 00:00 [facility] 2022-05-04 00:00 [facility] Problems No information. Procedures No information. Results/Labs test date author facility value unit interpret ation Result panel 1 (unknown) (no (unknown) (unknown) (no value) (units (unk nown) date) unknown) (unknown) (no (unknown) (unknown) (08/17/17) (units (unk nown) date) unknown) (unknown) (no (unknown) (unknown) [id number] (units (unkn own) date) unknown) (unknown) (no (unknown) (unknown) 05/04/22 (units (unkno wn) date) unknown) (unknown) (no (unknown) (unknown) 14:49) (units (unkno wn) date) unknown) (unknown) (no (unknown) (unknown) Accompanied by: (units (unknown) date) Spouse unknown) (unknown) (no (unknown) (unknown) Age/Sex: 86 / F (units (unknown) date) Date of Service: unknown) (unknown) (no (unknown) (unknown) Allergies (units (unkn own) date) unknown) (unknown) (no (unknown) (unknown) BONIFACIO Vincent (units ( unknown) date) [id number] unknown) (unknown) (no (unknown) (unknown) Attending Dr: (units ( unknown) date) Lawrence Delgado MD unknown) (unknown) (no (unknown) (unknown) COUGH (units (unkno wn) date) unknown) (unknown) (no (unknown) (unknown) Chest Pain (units (unk nown) date) unknown) (unknown) (no (unknown) (unknown) Chronic renal (units ( unknown) date) failure, stage 3b unknown) (unknown) (no (unknown) (unknown) : 1935 (units (unknown) date) Acct:[id number] unknown) (unknown) (no (unknown) (unknown) Dept at (units (unkno wn) date) . unknown) (unknown) (no (unknown) (unknown) Documented By: (units (unknown) date) Lawrence Delgado MD unknown) 05/04/22 1414 (unknown) (no (unknown) (unknown) Draft (units (unkno wn) date) unknown) (unknown) (no (unknown) (unknown) Essential (units (unkn own) date) hypertension unknown) (unknown) (no (unknown) (unknown) [facility]units ([facility] unknown) (unknown) (no (unknown) (unknown) Follow Up DM (units (u nknown) date) unknown) (unknown) (no (unknown) (unknown) Intake Note: (units (u nknown) date) unknown) (unknown) (no (unknown) (unknown) Intake performed (units (unknown) date) by: Debbie Aden unknown) D (unknown) (no (unknown) (unknown) Intake (units (unkno wn) date) unknown) (unknown) (no (unknown) (unknown) Intake- Clincial (units (unknown) date) Staff unknown) (unknown) (no (unknown) (unknown) Internal (units (unkno wn) date) Medicine Office unknown) Visit (unknown) (no (unknown) (unknown) Last Menstural (units (unknown) date) Cycle + Details unknown) (unknown) (no (unknown) (unknown) 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 unknown) (unknown) (no (unknown) (unknown) Loc: [facility] (units (unkno wn) date) unknown) (unknown) (no (unknown) (unknown) MYALGIAS (units (unkno wn) date) unknown) (unknown) (no (unknown) (unknown) 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, estrogen receptor positive (unknown) (no (unknown) (unknown) Malignant (units (unkn own) date) neoplasm of right unknown) breast (unknown) (no (unknown) (unknown) Medical History (units (unknown) date) (Updated 09/05/21 unknown) @ 11:58 by Lawrence Delgado MD) (unknown) (no (unknown) (unknown) Mixed (units (unkno wn) date) hyperlipidemia unknown) (unknown) (no (unknown) (unknown) Other Menstrual (units (unknown) date) Period: unknown) Postmenopausal (unknown) (no (unknown) (unknown) PFSH (units (unkno wn) date) unknown) (unknown) (no (unknown) (unknown) Patient: (units (unkno wn) date) Reba Celestin W unknown) MR#: M (unknown) (no (unknown) (unknown) Previous (units (unkno wn) date) occupational unknown) history: [employer]. (unknown) (no (unknown) (unknown) Reason For Visit (units (unknown) date) unknown) (unknown) (no (unknown) (unknown) Recheck Breast (units (unknown) date) Cancer unknown) (unknown) (no (unknown) (unknown) Review/Discuss. 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 unknown) (unknown) (no (unknown) (unknown) S/P total knee (units (unknown) date) arthroplasty unknown) (unknown) (no (unknown) (unknown) Signed By: (units (unk nown) date) unknown) (unknown) (no (unknown) (unknown) Smoking Status: (units (unknown) date) Never smoker unknown) (unknown) (no (unknown) (unknown) Social History (units (unknown) date) unknown) (unknown) (no (unknown) (unknown) Surgical History (units (unknown) date) (Updated 09/06/20 unknown) @ 07:43 by Lawrence Delgado MD) (unknown) (no (unknown) (unknown) This note may (units ( unknown) date) have been all or unknown) partially generated using voice recognition (unknown) (no (unknown) (unknown) Tobacco + (units (unkn own) date) Substance Use unknown) (unknown) (no (unknown) (unknown) Tobacco Status (units (unknown) date) unknown) (unknown) (no (unknown) (unknown) Tobacco: How (units (u nknown) date) many years used: unknown) 0 (unknown) (no (unknown) (unknown) Type 2 diabetes (units (unknown) date) mellitus with unknown) hyperglycemia (09/13/15) (unknown) (no (unknown) (unknown) Type 2 diabetes (units (unknown) date) mellitus without unknown) complication (unknown) (no (unknown) (unknown) Visit Reasons: (units (unknown) date) Recheck Breast unknown) Cancer/DM (unknown) (no (unknown) (unknown) alcohol intake: (units (unknown) date) never unknown) (unknown) (no (unknown) (unknown) caregiver/suppor (units (unknown) date) t person: No unknown) (unknown) (no (unknown) (unknown) education level: (units (unknown) date) high school unknown) (unknown) (no (unknown) (unknown) [employer] (units (unknown) date) [employer] unknown) (unknown) (no (unknown) (unknown) glipizide (units (unkn own) date) Adverse Reaction unknown) (Intermediate, Verified 02/02/22 14:49) (unknown) (no (unknown) (unknown) have occurred. (units (unknown) date) If there are any unknown) questions, please contact the Medical Records (unknown) (no (unknown) (unknown) household (units (unkn own) date) members: spouse unknown) (unknown) (no (unknown) (unknown) housing: house (units (unknown) date) unknown) (unknown) (no (unknown) (unknown) leisure (units (unkno wn) date) activities: unknown) fishing and other (unknown) (no (unknown) (unknown) lisinopril (units (unk nown) date) [LISINOPRIL] unknown) Adverse Reaction (Mild, Verified 02/02/22 14:49) (unknown) (no (unknown) (unknown) lives (units (unkno wn) date) independently: unknown) Yes (unknown) (no (unknown) (unknown) marital status: (units (unknown) date) unknown) (unknown) (no (unknown) (unknown) may occur. (units (unk nown) date) Occasional unknown) wrong-word or 'sound-alike' substitutions may have (unknown) (no (unknown) (unknown) number of (units (unkn own) date) children: 0 unknown) (unknown) (no (unknown) (unknown) occupational (units (u nknown) date) status: other unknown) (unknown) (no (unknown) (unknown) occurred due to (units (unknown) date) the inherent unknown) limitations of voice recognition software. Please (unknown) (no (unknown) (unknown) pets and (units (unkno wn) date) animals: No unknown) (unknown) (no (unknown) (unknown) quit status: (units (u nknown) date) quit date unknown) established (unknown) (no (unknown) (unknown) read the note (units ( unknown) date) carefully and unknown) recognize, using context, where these substitutions (unknown) (no (unknown) (unknown) second hand (units (un known) date) exposure: No unknown) (unknown) (no (unknown) (unknown) simvastatin (units (un known) date) [SIMVASTATIN] unknown) Adverse Reaction (Intermediate, Verified 02/02/22 (unknown) (no (unknown) (unknown) software. (units (unkn own) date) Although every unknown) effort is made to edit content, care information associate errors (unknown) (no (unknown) (unknown) substance use (units ( unknown) date) type: does not unknown) use Result panel 2 (unknown) (no (unknown) (unknown) (no value) (units (unk nown) date) unknown) (unknown) (no (unknown) (unknown) (08/17/17) (units (unk nown) date) unknown) (unknown) (no (unknown) (unknown) [id number] (units (unkn own) date) unknown) (unknown) (no (unknown) (unknown) 12/02/21 [History (units (unknown) date) Confirmed 05/04/22] unknown) (unknown) (no (unknown) (unknown) 03/14/18 [History (units (unknown) date) Confirmed 05/04/22] unknown) (unknown) (no (unknown) (unknown) 05/04/22 (units (unkno wn) date) unknown) (unknown) (no (unknown) (unknown) 05/04/22] (units (unkn own) date) unknown) (unknown) (no (unknown) (unknown) 14:16) (units (unkno wn) date) unknown) (unknown) (no (unknown) (unknown) 14:25 (units (unkno wn) date) unknown) (unknown) (no (unknown) (unknown) Accompanied by: (units (unknown) date) Spouse unknown) (unknown) (no (unknown) (unknown) Age/Sex: 86 / F Date (uni ts (unknown) date) of Service: unknown) (unknown) (no (unknown) (unknown) Allergies (units (unkn own) date) unknown) (unknown) (no (unknown) (unknown) [place] [address] (unit s (unknown) date) unknown) (unknown) (no (unknown) (unknown) Attending Dr: Lawrence Kapadia (uni ts (unknown) date) Sandy CASANOVA unknown) (unknown) (no (unknown) (unknown) BMI 19.8 (units (unkno wn) date) unknown) (unknown) (no (unknown) (unknown) BP 150/68 H (units (un known) date) unknown) (unknown) (no (unknown) (unknown) Blood Pressure (units (unknown) date) Location Lt brachial unknown) (unknown) (no (unknown) (unknown) COUGH (units (unkno wn) date) unknown) (unknown) (no (unknown) (unknown) Check for wax? (units (unknown) date) unknown) (unknown) (no (unknown) (unknown) Chest Pain (units (unk nown) date) unknown) (unknown) (no (unknown) (unknown) Chronic renal (units ( unknown) date) failure, stage 3b unknown) (unknown) (no (unknown) (unknown) Could not hear me (units (unknown) date) for reasons on why unknown) she is here. (unknown) (no (unknown) (unknown) : 1935 (units (unknown) date) Acct:[id number] unknown) (unknown) (no (unknown) (unknown) Dept at (units (unkno wn) date) . unknown) (unknown) (no (unknown) (unknown) Disabled Parking #1 (unit s (unknown) date) ea 06/14/18 [Rx unknown) Confirmed 05/04/22] (unknown) (no (unknown) (unknown) Documented By: (units (unknown) date) Lawrence Delgado MD unknown) 05/04/22 1414 (unknown) (no (unknown) (unknown) Draft (units (unkno wn) date) unknown) (unknown) (no (unknown) (unknown) Essential (units (unkn own) date) hypertension unknown) (unknown) (no (unknown) (unknown) [facility] unknown) (unknown) (no (unknown) (unknown) Follow Up DM (units (u nknown) date) unknown) (unknown) (no (unknown) (unknown) Height 5 ft 10 in (units (unknown) date) unknown) (unknown) (no (unknown) (unknown) IV Q21D #14 mL (units (unknown) date) 12/02/21 [Rx unknown) Confirmed 05/04/22] (unknown) (no (unknown) (unknown) Intake Note: (units (u nknown) date) unknown) (unknown) (no (unknown) (unknown) Intake performed by: (uni ts (unknown) date) Debbie Aden unknown) (unknown) (no (unknown) (unknown) Intake (units (unkno wn) date) unknown) (unknown) (no (unknown) (unknown) Intake- Clincial (units (unknown) date) Staff unknown) (unknown) (no (unknown) (unknown) Internal Medicine (units (unknown) date) Office Visit unknown) (unknown) (no (unknown) (unknown) Last Menstural Cycle (uni ts (unknown) date) + Details unknown) (unknown) (no (unknown) (unknown) 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 unknown) (unknown) (no (unknown) (unknown) Loc: [facility] (units (unkno wn) date) unknown) (unknown) (no (unknown) (unknown) MYALGIAS (units (unkno wn) date) unknown) (unknown) (no (unknown) (unknown) Malignant neoplasm (units (unknown) date) of left breast in unknown) female, estrogen receptor positive (unknown) (no (unknown) (unknown) 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 unknown) (unknown) (no (unknown) (unknown) Medical History (units (unknown) date) (Updated 09/05/21 @ unknown) 11:58 by Lawrence Delgado MD) (unknown) (no (unknown) (unknown) Medications (units (un known) date) unknown) (unknown) (no (unknown) (unknown) Mixed hyperlipidemia (uni ts (unknown) date) unknown) (unknown) (no (unknown) (unknown) Other Menstrual (units (unknown) date) Period: unknown) Postmenopausal (unknown) (no (unknown) (unknown) Oxygen Delivery (units (unknown) date) Method room air unknown) (unknown) (no (unknown) (unknown) PFSH (units (unkno wn) date) unknown) (unknown) (no (unknown) (unknown) Patient: (units (unkno wn) date) Reba Celestin W unknown) MR#: M (unknown) (no (unknown) (unknown) Plans to get fixed. 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 (unknown) (no (unknown) (unknown) Pulse 94 H (units (unk nown) date) unknown) (unknown) (no (unknown) (unknown) Pulse Oximetry (%) (units (unknown) date) 98 unknown) (unknown) (no (unknown) (unknown) Pulse Source Monitor (uni ts (unknown) date) unknown) (unknown) (no (unknown) (unknown) Reason For Visit (units (unknown) date) unknown) (unknown) (no (unknown) (unknown) Recheck Breast (units (unknown) date) Cancer unknown) (unknown) (no (unknown) (unknown) Review/Discuss. (units (unknown) date) unknown) (unknown) (no (unknown) (unknown) Right bundle branch (unit s (unknown) date) block unknown) (unknown) (no (unknown) (unknown) S/P total knee (units (unknown) date) arthroplasty unknown) (unknown) (no (unknown) (unknown) Signed By: (units (unk nown) date) unknown) (unknown) (no (unknown) (unknown) Smoking Status: (units (unknown) date) Never smoker unknown) (unknown) (no (unknown) (unknown) Social History (units (unknown) date) unknown) (unknown) (no (unknown) (unknown) States she cannot (units (unknown) date) hear out of her left unknown) ear. (unknown) (no (unknown) (unknown) States she could (units (unknown) date) hear her heart unknown) thumping in her ear. (unknown) (no (unknown) (unknown) Surgical History (units (unknown) date) (Updated 09/06/20 @ unknown) 07:43 by Lawrence Delgado MD) (unknown) (no (unknown) (unknown) This note may have (units (unknown) date) been all or partially unknown) generated using voice recognition (unknown) (no (unknown) (unknown) Tobacco + Substance (unit s (unknown) date) Use unknown) (unknown) (no (unknown) (unknown) Tobacco Status (units (unknown) date) unknown) (unknown) (no (unknown) (unknown) Tobacco: How many (units (unknown) date) years used: 0 unknown) (unknown) (no (unknown) (unknown) Type 2 diabetes (units (unknown) date) mellitus with unknown) hyperglycemia (09/13/15) (unknown) (no (unknown) (unknown) Type 2 diabetes (units (unknown) date) mellitus without unknown) complication (unknown) (no (unknown) (unknown) Visit Reasons: (units (unknown) date) Recheck Breast unknown) Cancer/DM (unknown) (no (unknown) (unknown) Vitals (units (unkno wn) date) unknown) (unknown) (no (unknown) (unknown) Weight 138 lb 9 oz (units (unknown) date) unknown) (unknown) (no (unknown) (unknown) When BP taken on (units (unknown) date) wrist, abnormal. unknown) (unknown) (no (unknown) (unknown) [History Confirmed (units (unknown) date) 05/04/22] unknown) (unknown) (no (unknown) (unknown) ado-trastuzumab (units (unknown) date) emtansine 100 mg unknown) intravenous solution ([place]) IV Q3W 02/02/22 (unknown) (no (unknown) (unknown) alcohol intake: (units (unknown) date) never unknown) (unknown) (no (unknown) (unknown) atorvastatin 40 mg (units (unknown) date) tablet 40 mg PO QDAY unknown) #90 tabs 07/04/21 [Rx Confirmed (unknown) (no (unknown) (unknown) caregiver/support (units (unknown) date) person: No unknown) (unknown) (no (unknown) (unknown) cholecalciferol (units (unknown) date) (vitamin D3) 125 mcg unknown) (5,000 unit) capsule 5,000 unit PO DAILY (unknown) (no (unknown) (unknown) education level: (units (unknown) date) high school unknown) (unknown) (no (unknown) (unknown) [employer] (units (unknown) date) [employer] unknown) (unknown) (no (unknown) (unknown) fulvestrant 250 mg/5 (uni ts (unknown) date) mL intramuscular unknown) syringe (Faslodex) 500 mg IM QMONTH (unknown) (no (unknown) (unknown) glipizide Adverse (units (unknown) date) Reaction unknown) (Intermediate, Verified 05/04/22 14:16) (unknown) (no (unknown) (unknown) have occurred. If (units (unknown) date) there are any unknown) questions, please contact the Medical Records (unknown) (no (unknown) (unknown) household members: (units (unknown) date) spouse unknown) (unknown) (no (unknown) (unknown) housing: house (units (unknown) date) unknown) (unknown) (no (unknown) (unknown) hydrochlorothiazide (unit s (unknown) date) 25 mg tablet 25 mg PO unknown) DAILY #90 tabs 01/02/22 [Rx Confirmed (unknown) (no (unknown) (unknown) leisure activities: (unit s (unknown) date) fishing and other unknown) (unknown) (no (unknown) (unknown) lisinopril (units (unk nown) date) [LISINOPRIL] Adverse unknown) Reaction (Mild, Verified 05/04/22 14:16) (unknown) (no (unknown) (unknown) lives independently: (uni ts (unknown) date) Yes unknown) (unknown) (no (unknown) (unknown) losartan 50 mg (units (unknown) date) tablet 50 mg PO BID unknown) #180 ea 07/04/21 [Rx Confirmed 05/04/22] (unknown) (no (unknown) (unknown) magnesium oxide 400 (unit s (unknown) date) mg PO BID 05/04/22 unknown) [History Confirmed 05/04/22] (unknown) (no (unknown) (unknown) marital status: (units (unknown) date) unknown) (unknown) (no (unknown) (unknown) may occur. (units (unk nown) date) Occasional wrong-word unknown) or 'sound-alike' substitutions may have (unknown) (no (unknown) (unknown) metformin 500 mg (units (unknown) date) tablet 500 mg PO BID unknown) #180 tabs 05/04/22 [Rx Confirmed 05/04/22] (unknown) (no (unknown) (unknown) number of children: (unit s (unknown) date) 0 unknown) (unknown) (no (unknown) (unknown) occupational status: (uni ts (unknown) date) other unknown) (unknown) (no (unknown) (unknown) occurred due to the (unit s (unknown) date) inherent limitations unknown) of voice recognition software. Please (unknown) (no (unknown) (unknown) pertuzumab 420 mg/14 (unit s (unknown) date) mL (30 mg/mL) unknown) intravenous solution (Perjeta) 420 mg (14 mL) (unknown) (no (unknown) (unknown) pets and animals: No (uni ts (unknown) date) unknown) (unknown) (no (unknown) (unknown) potassium chloride (units (unknown) date) 20 mEq unknown) tablet,extended release 20 meq PO DAILY 09/05/21 (unknown) (no (unknown) (unknown) quit status: quit (units (unknown) date) date established unknown) (unknown) (no (unknown) (unknown) read the note (units ( unknown) date) carefully and unknown) recognize, using context, where these substitutions (unknown) (no (unknown) (unknown) second hand (units (un known) date) exposure: No unknown) (unknown) (no (unknown) (unknown) simvastatin (units (un known) date) [SIMVASTATIN] Adverse unknown) Reaction (Intermediate, Verified 05/04/22 (unknown) (no (unknown) (unknown) software. Although (units (unknown) date) every effort is made unknown) to edit content, care information associate errors (unknown) (no (unknown) (unknown) substance use type: (unit s (unknown) date) does not use unknown) Result panel 3 (unknown) (no (unknown) (unknown) (no value) (units (unk nown) date) unknown) (unknown) (no (unknown) (unknown) (08/17/17) (units (unk nown) date) unknown) (unknown) (no (unknown) (unknown) (1) Type 2 diabetes (unit s (unknown) date) mellitus without unknown) complication: (unknown) (no (unknown) (unknown) [id number] (units (unkn own) date) unknown) (unknown) (no (unknown) (unknown) 12/02/21 [History (units (unknown) date) Confirmed 05/04/22] unknown) (unknown) (no (unknown) (unknown) 05/04/22 (units (unkno wn) date) unknown) (unknown) (no (unknown) (unknown) 05/04/22] (units (unkn own) date) unknown) (unknown) (no (unknown) (unknown) 14:16) (units (unkno wn) date) unknown) (unknown) (no (unknown) (unknown) 14:25 (units (unkno wn) date) unknown) (unknown) (no (unknown) (unknown) Accompanied by: (units (unknown) date) Spouse unknown) (unknown) (no (unknown) (unknown) Age/Sex: 86 / F Date (uni ts (unknown) date) of Service: unknown) (unknown) (no (unknown) (unknown) Allergies (units (unkn own) date) unknown) (unknown) (no (unknown) (unknown) BONIFACIO Vincent [id number] (unit s (unknown) date) unknown) (unknown) (no (unknown) (unknown) Assessment + Plan (units (unknown) date) unknown) (unknown) (no (unknown) (unknown) Attending Dr: Lawrence Kapadia (uni ts (unknown) date) Sandy CASANOVA unknown) (unknown) (no (unknown) (unknown) BMI 19.8 (units (unkno wn) date) unknown) (unknown) (no (unknown) (unknown) BP 150/68 H (units (un known) date) unknown) (unknown) (no (unknown) (unknown) Blood Pressure (units (unknown) date) Location Lt brachial unknown) (unknown) (no (unknown) (unknown) COUGH (units (unkno wn) date) unknown) (unknown) (no (unknown) (unknown) Check for wax? (units (unknown) date) unknown) (unknown) (no (unknown) (unknown) Chest Pain (units (unk nown) date) unknown) (unknown) (no (unknown) (unknown) Chronic renal (units ( unknown) date) failure, stage 3b unknown) (unknown) (no (unknown) (unknown) Could not hear me (units (unknown) date) for reasons on why unknown) she is here. (unknown) (no (unknown) (unknown) : 1935 (units (unknown) date) Acct:[id number] unknown) (unknown) (no (unknown) (unknown) Dept at (units (unkno wn) date) . 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 unknown) use: without penitentiary use (unknown) (no (unknown) (unknown) Disabled Parking #1 (unit s (unknown) date) ea 06/14/18 [Rx unknown) Confirmed 05/04/22] (unknown) (no (unknown) (unknown) Discontinued Reason: (uni ts (unknown) date) Provider's Order unknown) 5,000 units PO DAILY (unknown) (no (unknown) (unknown) Discontinued (units (u nknown) date) unknown) (unknown) (no (unknown) (unknown) Documented By: (units (unknown) date) Lawrence Delgado MD unknown) 05/04/22 1414 (unknown) (no (unknown) (unknown) Draft (units (unkno wn) date) unknown) (unknown) (no (unknown) (unknown) Essential (units (unkn own) date) hypertension unknown) (unknown) (no (unknown) (unknown) [facility] ([facility]) (unknown) (no (unknown) (unknown) Follow Up DM (units (u nknown) date) unknown) (unknown) (no (unknown) (unknown) Height 5 ft 10 in (units (unknown) date) unknown) (unknown) (no (unknown) (unknown) Hemoglobin A1C% w (units (unknown) date) Est Avg Glu Today unknown) E11.9 - Type 2 diabetes mellitus without (unknown) (no (unknown) (unknown) IV Q21D #14 mL (units (unknown) date) 12/02/21 [Rx unknown) Confirmed 05/04/22] (unknown) (no (unknown) (unknown) Intake Note: (units (u nknown) date) unknown) (unknown) (no (unknown) (unknown) Intake performed by: (uni ts (unknown) date) Debbie Aden unknown) (unknown) (no (unknown) (unknown) Intake (units (unkno wn) date) unknown) (unknown) (no (unknown) (unknown) Intake- Clincial (units (unknown) date) Staff unknown) (unknown) (no (unknown) (unknown) Internal Medicine (units (unknown) date) Office Visit unknown) (unknown) (no (unknown) (unknown) Last Menstural Cycle (uni ts (unknown) date) + Details unknown) (unknown) (no (unknown) (unknown) 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 unknown) (unknown) (no (unknown) (unknown) Loc: [facility] (units (unkno wn) date) unknown) (unknown) (no (unknown) (unknown) MYALGIAS (units (unkno wn) date) unknown) (unknown) (no (unknown) (unknown) Malignant neoplasm (units (unknown) date) of left breast in unknown) female, estrogen receptor positive (unknown) (no (unknown) (unknown) 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 unknown) (unknown) (no (unknown) (unknown) Medical History (units (unknown) date) (Updated 09/05/21 @ unknown) 11:58 by Lawrence Delgado MD) (unknown) (no (unknown) (unknown) Medications (units (un known) date) unknown) (unknown) (no (unknown) (unknown) Medications: (units (u nknown) date) unknown) (unknown) (no (unknown) (unknown) Mixed hyperlipidemia (uni ts (unknown) date) unknown) (unknown) (no (unknown) (unknown) Orders (units (unkno wn) date) unknown) (unknown) (no (unknown) (unknown) Orders: (units (unkno wn) date) unknown) (unknown) (no (unknown) (unknown) Other Menstrual (units (unknown) date) Period: unknown) Postmenopausal (unknown) (no (unknown) (unknown) Oxygen Delivery (units (unknown) date) Method room air unknown) (unknown) (no (unknown) (unknown) PFSH (units (unkno wn) date) unknown) (unknown) (no (unknown) (unknown) Patient: (units (unkno wn) date) Reba Celestin W unknown) MR#: M (unknown) (no (unknown) (unknown) Plans to get fixed. 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 (unknown) (no (unknown) (unknown) Pulse 94 H (units (unk nown) date) unknown) (unknown) (no (unknown) (unknown) Pulse Oximetry (%) (units (unknown) date) 98 unknown) (unknown) (no (unknown) (unknown) Pulse Source Monitor (uni ts (unknown) date) unknown) (unknown) (no (unknown) (unknown) Qualified Code(s): (units (unknown) date) E11.9 - Type 2 unknown) diabetes mellitus without complications (unknown) (no (unknown) (unknown) Qualifiers: (units (un known) date) unknown) (unknown) (no (unknown) (unknown) Reason For Visit (units (unknown) date) unknown) (unknown) (no (unknown) (unknown) Recheck Breast (units (unknown) date) Cancer unknown) (unknown) (no (unknown) (unknown) Review/Discuss. (units (unknown) date) unknown) (unknown) (no (unknown) (unknown) Right bundle branch (unit s (unknown) date) block unknown) (unknown) (no (unknown) (unknown) S/P total knee (units (unknown) date) arthroplasty unknown) (unknown) (no (unknown) (unknown) Signed By: (units (unk nown) date) unknown) (unknown) (no (unknown) (unknown) Smoking Status: (units (unknown) date) Never smoker unknown) (unknown) (no (unknown) (unknown) Social History (units (unknown) date) unknown) (unknown) (no (unknown) (unknown) States she cannot (units (unknown) date) hear out of her left unknown) ear. (unknown) (no (unknown) (unknown) States she could (units (unknown) date) hear her heart unknown) thumping in her ear. (unknown) (no (unknown) (unknown) Status: Chronic (units (unknown) date) unknown) (unknown) (no (unknown) (unknown) Surgical History (units (unknown) date) (Updated 09/06/20 @ unknown) 07:43 by Lawrence Delgado MD) (unknown) (no (unknown) (unknown) This note may have (units (unknown) date) been all or partially unknown) generated using voice recognition (unknown) (no (unknown) (unknown) Tobacco + Substance (unit s (unknown) date) Use unknown) (unknown) (no (unknown) (unknown) Tobacco Status (units (unknown) date) unknown) (unknown) (no (unknown) (unknown) Tobacco: How many (units (unknown) date) years used: 0 unknown) (unknown) (no (unknown) (unknown) Type 2 diabetes (units (unknown) date) mellitus with unknown) hyperglycemia (09/13/15) (unknown) (no (unknown) (unknown) Type 2 diabetes (units (unknown) date) mellitus without unknown) complication (unknown) (no (unknown) (unknown) Visit Reasons: (units (unknown) date) Recheck Breast unknown) Cancer/DM (unknown) (no (unknown) (unknown) Vitals (units (unkno wn) date) unknown) (unknown) (no (unknown) (unknown) Weight 138 lb 9 oz (units (unknown) date) unknown) (unknown) (no (unknown) (unknown) When BP taken on (units (unknown) date) wrist, abnormal. unknown) (unknown) (no (unknown) (unknown) [History Confirmed (units (unknown) date) 05/04/22] unknown) (unknown) (no (unknown) (unknown) ado-trastuzumab (units (unknown) date) emtansine 100 mg unknown) intravenous solution ([place]) IV Q3W 02/02/22 (unknown) (no (unknown) (unknown) alcohol intake: (units (unknown) date) never unknown) (unknown) (no (unknown) (unknown) atorvastatin 40 mg (units (unknown) date) tablet 40 mg PO QDAY unknown) #90 tabs 07/04/21 [Rx Confirmed (unknown) (no (unknown) (unknown) caregiver/support (units (unknown) date) person: No unknown) (unknown) (no (unknown) (unknown) cholecalciferol (units (unknown) date) (vitamin D3) unknown) (unknown) (no (unknown) (unknown) complications (units ( unknown) date) unknown) (unknown) (no (unknown) (unknown) education level: (units (unknown) date) high school unknown) (unknown) (no (unknown) (unknown) [employer]ie/[employer] (units (unknown) date) [employer] unknown) (unknown) (no (unknown) (unknown) fulvestrant 250 mg/5 (uni ts (unknown) date) mL intramuscular unknown) syringe (Faslodex) 500 mg IM QMONTH (unknown) (no (unknown) (unknown) glipizide Adverse (units (unknown) date) Reaction unknown) (Intermediate, Verified 05/04/22 14:16) (unknown) (no (unknown) (unknown) have occurred. If (units (unknown) date) there are any unknown) questions, please contact the Medical Records (unknown) (no (unknown) (unknown) household members: (units (unknown) date) spouse unknown) (unknown) (no (unknown) (unknown) housing: house (units (unknown) date) unknown) (unknown) (no (unknown) (unknown) hydrochlorothiazide (unit s (unknown) date) 25 mg tablet 25 mg PO unknown) DAILY #90 tabs 01/02/22 [Rx Confirmed (unknown) (no (unknown) (unknown) leisure activities: (unit s (unknown) date) fishing and other unknown) (unknown) (no (unknown) (unknown) lisinopril (units (unk nown) date) [LISINOPRIL] Adverse unknown) Reaction (Mild, Verified 05/04/22 14:16) (unknown) (no (unknown) (unknown) lives independently: (uni ts (unknown) date) Yes unknown) (unknown) (no (unknown) (unknown) losartan 50 mg (units (unknown) date) tablet 50 mg PO BID unknown) #180 ea 07/04/21 [Rx Confirmed 05/04/22] (unknown) (no (unknown) (unknown) magnesium oxide 400 (unit s (unknown) date) mg PO BID 05/04/22 unknown) [History Confirmed 05/04/22] (unknown) (no (unknown) (unknown) marital status: (units (unknown) date) unknown) (unknown) (no (unknown) (unknown) may occur. (units (unk nown) date) Occasional wrong-word unknown) or 'sound-alike' substitutions may have (unknown) (no (unknown) (unknown) metformin 500 mg (units (unknown) date) tablet 500 mg PO BID unknown) #180 tabs 05/04/22 [Rx Confirmed 05/04/22] (unknown) (no (unknown) (unknown) number of children: (unit s (unknown) date) 0 unknown) (unknown) (no (unknown) (unknown) occupational status: (uni ts (unknown) date) other unknown) (unknown) (no (unknown) (unknown) occurred due to the (unit s (unknown) date) inherent limitations unknown) of voice recognition software. Please (unknown) (no (unknown) (unknown) pertuzumab 420 mg/14 (unit s (unknown) date) mL (30 mg/mL) unknown) intravenous solution ([place]) 420 mg (14 mL) (unknown) (no (unknown) (unknown) pets and animals: No (uni ts (unknown) date) unknown) (unknown) (no (unknown) (unknown) potassium chloride (units (unknown) date) 20 mEq unknown) tablet,extended release 20 meq PO DAILY 09/05/21 (unknown) (no (unknown) (unknown) quit status: quit (units (unknown) date) date established unknown) (unknown) (no (unknown) (unknown) read the note (units ( unknown) date) carefully and unknown) recognize, using context, where these substitutions (unknown) (no (unknown) (unknown) second hand (units (un known) date) exposure: No unknown) (unknown) (no (unknown) (unknown) simvastatin (units (un known) date) [SIMVASTATIN] Adverse unknown) Reaction (Intermediate, Verified 05/04/22 (unknown) (no (unknown) (unknown) software. Although (units (unknown) date) every effort is made unknown) to edit content, care information associate errors (unknown) (no (unknown) (unknown) substance use type: (unit s (unknown) date) does not use unknown) Social History date description facility 2022-05-04 00:00 Never smoked tobacco ([facility] Vital Signs date measurement value units 2022-05-04 00:00 BMI 19.8 kg/m2 2022-05-04 00:00 BP_diastolic 68 mmHg 2022-05-04 00:00 BP_systolic 150 mmHg 2022-05-04 00:00 heart_rate 94 /min 2022-05-04 00:00 height_metric 177.8 cm 2022-05-04 00:00 height_standard 70 in 2022-05-04 00:00 o2_saturation 98 % 2022-05-04 00:00 weight_metric 62.85 kg 2022-05-04 00:00 weight_standard 138.56 lb
[2022-07-02] MEDS ORDERED: TETANUS/DIPHTHERIA/PERTUSSIS 0.5 ML SYRINGE IM ONE (16:04)
--- NOTE | 2022-07-02 16:37 | CT Report ---
PROCEDURE: CERVICAL SPINE WO INDICATIONS: glf TECHNIQUE: Noncontrast 3 mm thick sections acquired from the skull base to the T4 level. Sagittal and coronal r eformats were then constructed. For radiation dose reduction, the following was used: automated exp osure control, adjustment of mA and/or kV according to patient size. COMPARISON: Correlation is made with the accompanying head CT. Correlation is made with the accompan [facility] chest CT, 05/02/2022. FINDINGS: Image quality: Motion artifact is noted. Bones: No fractures or dislocations. Visualized superior ribs are intact. Focal degenerative change can be seen involving the C1-C2 interface anteriorly. Bony erosions are see n and calcified pannus can be seen posterior to the dens. There is moderate severe disc space narrowi ng seen at C5-C6 and mild disc space narrowing at C6-C7. There are degenerative changes can be seen o f the visualized superior thoracic spine. Soft tissues: Prevertebral soft tissues are normal in thickness. No paravertebral hematomas. No ap ical pneumothoraces. Atherosclerotic calcification is seen. A left-sided chest port is partially see n. The previously seen right-sided nodule is not well seen on the study performed without IV contrast . IMPRESSION: No acute fractures are seen. Advanced degenerative changes can be seen involving the C1-C2 interface anteriorly, with erosions and calcified pannus. Please correlate with underlying patient history, including rheumatoid arthritis. Additional findings: Left-sided chest port Right-sided thyroid nodule, poorly seen. Reviewed by: Prakash Nichols MD on 07/02/2022 3:36 PM [place] Approved by: Prakash Nichols MD on 07/02/2022 3:36 PM [place] Station ID: [id number]
--- NOTE | 2022-07-02 16:39 | CT Report ---
PROCEDURE: HEAD WO INDICATIONS: Ground level fall, left forehead hematoma TECHNIQUE: Noncontrast 4.5 mm thick angled axial sections acquired from the foramen magnum to the vertex. For r adiation dose reduction, the following was used: automated exposure control, adjustment of mA and/or kV according to patient size. COMPARISON: Correlation is made with the accompanying cervical spine CT. FINDINGS: Image quality: Motion artifact is noted. Images were repeated, with some improvement. There is streak artifact seen through the skull base. CSF spaces: Basal cisterns are patent. No extra-axial fluid collections. Ventricles are normal in size and shape. Brain: No midline shift. No intracranial masses or hemorrhage. Gottlieb-white matter interface is norm al. Skull and face: There is a moderate scalp hematoma seen involving the left temporal region. No under lying calvarial fracture can be seen. Calvarium and visualized facial bones are intact, without suspi cious lesions. 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 Sinuses: Visualized sinuses and mastoids are clear. IMPRESSION: Moderate scalp hematoma involving the left temporal region, without an associated calvar ial fracture. No intracranial hemorrhage is seen. No significant intracranial abnormality is seen. Reviewed by: Prakash Nichols MD on 07/02/2022 3:38 PM [facility] Approved by: Prakash Nichols MD on 07/02/2022 3:38 PM [facility] Station ID: [id number]
[2022-07-02] MEDS ORDERED: BACITRACIN ZINC OINT 1 PACKET TOP STA (17:00)
[2022-07-02 17:17] VITALS: BP 157/65
== END 2022-07-02 17:59 | disposition home or self-care (01) ==
LOC: EDUNIT# → ED 14:52
DX: S01.81XA Laceration without foreign body of other part of head, initial encounter (principal); W01.198A Fall on same level from slipping, tripping and stumbling with subsequent striking against other object, initial encounter; Y93.01 Activity, walking, marching and hiking; Y92.832 Beach as the place of occurrence of the external cause
CPT/HCPCS: 12002; 70450; 72125; 90471; 90715; 99283; 99284; A9270; 80053; 83690; 85025

== ENCOUNTER 2023-01-02 10:31 | Outpatient (CLI) | payer MEDICARE, OTHER | END 2023-01-02 10:32 | disposition short-term general hospital (02) | LOC: EMS 10:31 | DX: R53.1 Weakness (principal); R63.8 Other symptoms and signs concerning food and fluid intake | CPT/HCPCS: A0425; A0427 ==